=== PATIENT | male | born 1945 | race Caucasian/White ===

== ENCOUNTER 2019-09-22 13:35 | Emergency (ER) | payer MEDICARE ==
[~2019-09-22] VITALS: Ht 177.8 cm; Wt 82.6 kg
[2019-09-22] MEDS ORDERED: DIPHTH,PERTUSS(ACELL),TET TOX 0.5 ML DISP.SYRIN. VAX IM ONE (14:00)
--- NOTE | 2019-09-22 14:15 | RAD ---
EXAM: Pelvis and left hip, 2 views. HISTORY: Trauma. COMPARISON: None. FINDINGS: A frontal view of the pelvis and frontal and lateral views of the left hip and femur are obtained. There is internal fixation of a left femoral intertrochanteric fracture in anatomic alignment with an intramedullary manuel. There is also internal fixation of a distal femoral fracture with a lateral plate and multiple screws. There is bony bridging along the distal femoral fracture line. There is slight heterotopic ossification along the left medial femoral condyle. There is medial compartment joint space narrowing of the knee. There is calcified atherosclerotic plaque throughout the left lower extremity. IMPRESSION: 1. Internal fixation of a left femoral intertrochanteric fracture. 2. Internal fixation of a healed distal femoral metadiaphyseal fracture. 3. Medial compartment osteoarthritis of the left knee. Electronically signed by: Ely Cordova MD (09/22/2019 2:13 PM) [id number]
[2019-09-22 14:57] VITALS: BP 104/37
--- NOTE | 2019-09-22 15:46 | PHYS DOC ---
Past History Past Medical History: A-Fib, CHF, COPD, DVT, Seizure, Other Additional Past Medical Histor: anemia, dysphagia, BPH, pleural effusion Additional Smoking Information: pt has nicotine patch Alcohol Use: None Drug Use: None Adult General Chief Complaint Chief Complaint: HIP PAIN HPI HPI Patient is a [73-year-old male who did fall yesterday at the senior care he is about one month status post hip replacement on the left he says that he was walking using his walker without the nurse's next to him he knew that he shouldn't have been he lost his balance and fell on his buttocks he did not hit his head he says he knows he is sure that. History was also obtained from nursing staff who got report from the nursing facility patient is on Coumadin last INR was 2.1 day confirm no head injury noted. Patient was complaining of increasing hip pain so he was brought to the emergency room for evaluation Review of Systems Review of Systems Constitutional: Denies fever or chills [] Eyes: Denies change in visual acuity, redness, or eye pain [] HENT: Denies nasal congestion or sore throat [] Respiratory: Denies cough or shortness of breath [] All other systems were reviewed and found to be within normal limits, except as documented in this note. Current Medications Current Medications Current Medications Medications (Trade) Dose Ordered Sig/Yeimi Start Time Stop Time Status Last Admin Dose Admin Diphtheria/ Tetanus/Acell Pertussis (Boostrix) 0.5 ml ONCE ONCE 09/22/19 14:00 09/22/19 14:34 DC 09/22/19 14:48 0.5 ML Allergies Allergies Allergies Coded Allergies Type Severity Reaction Last Updated Verified No Known Drug Allergies 09/22/19 No Physical Exam Physical Exam Constitutional: Well developed, well nourished, no acute distress, non-toxic appearance. [] HENT: Normocephalic, atraumatic, bilateral external ears normal, oropharynx moist, no oral exudates, nose normal. [] Eyes: PERRLA, EOMI, conjunctiva normal, no discharge. [] Neck: Normal range of motion, no tenderness, supple, no stridor. [] Lungs & Thorax: Bilateral breath sounds clear to auscultation [] Abdomen: Bowel sounds normal, soft, no tenderness, no masses, no pulsatile masses. [] Skin: Warm, dry, no erythema, no rash. [] Back: No tenderness, no CVA tenderness. [] Extremities: Tenderness to palpation noted of the left hip range motion is actually fairly intact no obvious ecchymosis was identified there is edema noted appears chronic bilateral symmetric Neurologic: Alert and oriented X 3, normal motor function, normal sensory function, no focal deficits noted. [] Psychologic: Affect normal, judgement normal, mood normal. [] Current Patient Data Vital Signs Vital Signs Date Time Temp Pulse Resp B/P (MAP) Pulse Ox O2 Delivery O2 Flow Rate FiO2 09/22/19 14:57 73 16 104/37 (59) 97 Room Air 09/22/19 13:40 98.6 EKG EKG [] Radiology/Procedures Radiology/Procedures [] Impressions: IMPRESSION: 1. Internal fixation of a left femoral intertrochanteric fracture. 2. Internal fixation of a healed distal femoral metadiaphyseal fracture. 3. Medial compartment osteoarthritis of the left knee. Electronically signed by: Ely Cordova MD (09/22/2019 2:13 PM) [place] [id number] DICTATED AND SIGNED BY: ELY CORDOVA MD DATE: 09/22/19 1413 CC: ASHLEY SNYDER MD ~ Course & Med Decision Making Course & Med Decision Making Pertinent Labs and Imaging studies reviewed. (See chart for details) []73-year-old male A. fib on Coumadin recent hip surgery presenting after mechanical fall with increased hip pain x-ray negative range of motion is actually not bad given her recent surgery no head injury by clinical examination or history patient is neuro intact greater than 24 hours after the injury at this point time patient was reassured and will be discharged back to the nursing facility in stable condition Dragon Disclaimer Dragon Disclaimer This electronic medical record was generated, in whole or in part, using a voice recognition dictation system. Departure Departure: Impression: Primary Impression: Hip pain Disposition: 01 HOME, SELF-CARE Condition: STABLE Patient Instructions: Hip Pain ASHLEY SNYDER MD Sep 22, 2019 15:46
== END 2019-09-22 15:05 | disposition home or self-care (01) ==
LOC: ER 13:35
DX: M25.552 Pain in left hip (principal); Z96.642 Presence of left artificial hip joint; I48.91 Unspecified atrial fibrillation; I50.9 Heart failure, unspecified; J44.9 Chronic obstructive pulmonary disease, unspecified; Z86.718 Personal history of other venous thrombosis and embolism; Z79.01 Long term (current) use of anticoagulants; F17.200 Nicotine dependence, unspecified, uncomplicated; W18.39XA Other fall on same level, initial encounter; Y93.01 Activity, walking, marching and hiking; Y92.128 Other place in nursing home as the place of occurrence of the external cause; Y99.8 Other external cause status
CPT/HCPCS: 73502; 90471; 90715; 99284-25

== ENCOUNTER 2019-09-26 15:59 | Emergency (ER) | payer MEDICARE ==
[~2019-09-26] VITALS: Ht 177.8 cm; Wt 82.6 kg
--- NOTE | 2019-09-26 16:09 | PHYS DOC ---
Past History Past Medical History: A-Fib, CHF, COPD, DVT, Seizure, Other Additional Past Medical Histor: anemia, dysphagia, BPH, pleural effusion Alcohol Use: None Drug Use: None Adult General Chief Complaint Chief Complaint: MECHANICAL FALL HPI HPI Patient is a 73-year-old male who presents from [facility] with report that he fell. Patient states that his feet got tangled up with each other and he states that he had a flareup of being clumsy which caused the fall. Patient states that he landed on his bottom. He denies any pain anywhere. He states that he did not hit his head. Patient was brought here because he is on blood thinners. Patient denies any headache or head injury..[] Review of Systems Review of Systems Constitutional: Denies fever or chills [] Respiratory: Denies cough or shortness of breath [] Cardiovascular: No additional information not addressed in HPI [] Musculoskeletal: Denies back pain or joint pain [] Neurologic: Denies headache, focal weakness or sensory changes [] Allergies Allergies Allergies Coded Allergies Type Severity Reaction Last Updated Verified No Known Drug Allergies 09/22/19 No Physical Exam Physical Exam Constitutional: Well developed, well nourished, no acute distress, non-toxic appearance. [] HENT: Normocephalic, atraumatic. [] Neck: Normal range of motion, no tenderness, supple, no stridor. [] Cardiovascular: Regular rate with irregular rhythm[] Lungs & Thorax: Bilateral breath sounds clear to auscultation [] Neurologic: Alert and oriented, no focal deficits noted. [] EKG EKG [] Radiology/Procedures Radiology/Procedures [] Course & Med Decision Making Course & Med Decision Making Pertinent Labs and Imaging studies reviewed. (See chart for details) [] Dragon Disclaimer Dragon Disclaimer This electronic medical record was generated, in whole or in part, using a voice recognition dictation system. Departure Departure: Impression: Primary Impression: Fall with no injury Disposition: 01 HOME, SELF-CARE Condition: STABLE Referrals: HIRA URIAS MD (PCP) Patient Instructions: Fall Prevention in Hospitals Problem Qualifiers Primary Impression: Fall with no injury Encounter type: initial encounter Qualified Codes: W19.XXXA - Unspecified fall, initial encounter DIEGO KOHLER Jr. DO Sep 26, 2019 16:09
[2019-09-26 18:46] VITALS: BP 164/69
== END 2019-09-26 16:35 | disposition home or self-care (01) ==
LOC: ER 15:59
DX: Z04.3 Encounter for examination and observation following other accident (principal); I48.91 Unspecified atrial fibrillation; I50.9 Heart failure, unspecified; J44.9 Chronic obstructive pulmonary disease, unspecified; Z86.718 Personal history of other venous thrombosis and embolism; W18.39XA Other fall on same level, initial encounter; Y93.89 Activity, other specified; Y92.128 Other place in nursing home as the place of occurrence of the external cause; Y99.8 Other external cause status
CPT/HCPCS: 99284

== ENCOUNTER 2019-09-30 12:18 | Emergency (ER) | payer MEDICARE ==
[~2019-09-30] VITALS: Ht 177.8 cm; Wt 72.1 kg
[2019-09-30] MEDS ORDERED: 0.9 % SODIUM CHLORIDE 10 ML DISP.SYRIN. IV PRN (12:45)
[2019-09-30] MEDS ORDERED: PIPERACILLIN/TAZOBACTAM 4.5 GM in IV NORMAL SALINE 100ML 100 ML IV ONE (12:45)
--- NOTE | 2019-09-30 12:46 | PHYS DOC ---
Past History Past Medical History: A-Fib, CHF, COPD, DVT, Seizure, Other Additional Past Medical Histor: anemia, dysphagia, BPH, pleural effusion Past Surgical History: Other Additional Past Surgical Histo: Left hip nailing in August 2019 Smoking: Cigarettes, Less than 1pk/day Alcohol Use: None Drug Use: None Adult General Chief Complaint Chief Complaint: SHORTNESS OF BREATH HPI HPI Patient is a 73-year-old male brought in by EMS due to sepsis. Patient has had diarrhea for the past several days. Was diagnosed with pneumonia on chest x-ray within the past 12 hours. He is now requiring supplemental oxygen. With an oxygen saturation of 88% on room air, 94% on 3 L nasal cannula per EMS. He has a history of atrial fibrillation and is on digoxin as well as Coumadin for this. He denies any shortness of breath. Denies any blood in his stool. Denies being on any recent antibiotics. He had surgery on his left hip last month. Nothing makes symptoms better or worse.[] Review of Systems Review of Systems Constitutional: Denies fever or chills [] Eyes: Denies change in visual acuity, redness, or eye pain [] HENT: Denies nasal congestion or sore throat [] Respiratory: Denies cough or shortness of breath [] Cardiovascular: O chest pain or palpitations[] GI: Denies abdominal pain, nausea, vomiting, bloody stools, see history of present illness[] : Denies dysuria or hematuria [] Musculoskeletal: Denies back pain or joint pain [] Integument: Denies rash or skin lesions [] Neurologic: Denies headache, focal weakness or sensory changes [] Endocrine: Denies polyuria or polydipsia [] All other systems were reviewed and found to be within normal limits, except as documented in this note. Allergies Allergies Allergies Coded Allergies Type Severity Reaction Last Updated Verified No Known Drug Allergies 09/22/19 No Physical Exam Physical Exam Constitutional: Well developed, well nourished, no acute distress, non-toxic appearance. [] HENT: Normocephalic, atraumatic, bilateral external ears normal, oropharynx moist, no oral exudates, nose normal. [] Eyes: PERRLA, EOMI, conjunctiva normal, no discharge. [] Neck: Normal range of motion, no tenderness, supple, no stridor. [] Cardiovascular:Heart rate is tachycardic in the 110s with an irregularly irregular rhythm, no murmur [] Lungs & Thorax: Bilateral breath sounds clear to auscultation [] Abdomen: Bowel sounds normal, soft, no tenderness, no masses, no pulsatile alex s. [] Skin: Warm, dry, no erythema, no rash. [] Back: No tenderness, no CVA tenderness. [] Extremities: No tenderness, no cyanosis, no clubbing, ROM intact, 1-2+ pretibial edema bilaterally symmetric[] Neurologic: Alert and oriented X 3, normal motor function, normal sensory function, no focal deficits noted. [] Psychologic: Affect normal, judgement normal, mood normal. [] EKG EKG EKG shows an irregular rhythm at 113 bpm, consistent with atrial fibrillation, left axis, QTC of 469 ms, no ST elevation. Interpreted by me at 1229.[] Radiology/Procedures Radiology/Procedures PROCEDURE: PORTABLE CHEST 1V Portable chest x-ray without comparison for fever, cough, reported pneumonia, history of smoking, A. fib. FINDINGS: There are patchy airspace infiltrates in both lung bases, left greater than right, there also coarse interstitial changes throughout, with indistinctness of the central vascularity, which could reflect pulmonary edema and/or interstitial fibrosis. Heart size is within normal limits. Atherosclerosis is present. Left hemidiaphragm is elevated. IMPRESSION: 1. Bilateral airspace infiltrates of the lung bases, left greater than right. 2. Coarse interstitial changes diffusely which may reflect prominent edema or interstitial fibrosis. 3. Elevated left hemidiaphragm.[] Course & Med Decision Making Course & Med Decision Making Pertinent Labs and Imaging studies reviewed. (See chart for details) Emergency department course: Patient arrived, was placed in bed, and tolerated exam well. IV access was established, patient was given an initial antibiotic therapy. Discussion with patient and family, they would like to be transferred to [facility] cause that's where most of his care is provided. Dr. Asher graciously accepted the patient for transfer. Medical decision making: It believe the patient to have healthcare associated pneumonia given the chest x-ray findings. He has been given initial dose of IV antibiotics. Patient has also been having diarrhea which may be as a result of antibiotic therapy. At the assisted care/rehabilitation facility it appears that he had a C. difficile test performed. Those results are not back at this time. Patient's INR is slightly elevated given his history of A. fib. Digoxin level is pending. He does not appear to be septic given his lactate being normal.[] Dragon Disclaimer Dragon Disclaimer This electronic medical record was generated, in whole or in part, using a voice recognition dictation system. Departure Departure: Impression: Primary Impression: Pneumonia Additional Impressions: Diarrhea Atrial fibrillation COPD (chronic obstructive pulmonary disease) Disposition: 05 TRANSFER OTHER Condition: IMPROVED Referrals: HIRA URIAS MD (PCP) Problem Qualifiers Primary Impression: Pneumonia Pneumonia type: due to unspecified organism Laterality: bilateral Lung location: lower lobe of lung Qualified Codes: J18.9 - Pneumonia, unspecified organism Additional Impressions: Diarrhea Diarrhea type: unspecified type Qualified Codes: R19.7 - Diarrhea, unspecified Atrial fibrillation Atrial fibrillation type: unspecified Qualified Codes: I48.91 - Unspecified atrial fibrillation COPD (chronic obstructive pulmonary disease) COPD type: unspecified COPD Qualified Codes: J44.9 - Chronic obstructive pulmonary disease, unspecified EVANGELINA AZEVEDO DO Sep 30, 2019 12:46
--- NOTE | 2019-09-30 12:54 | RAD ---
Portable chest x-ray without comparison for fever, cough, reported pneumonia, history of smoking, A. fib. FINDINGS: There are patchy airspace infiltrates in both lung bases, left greater than right, there also coarse interstitial changes throughout, with indistinctness of the central vascularity, which could reflect pulmonary edema and/or interstitial fibrosis. Heart size is within normal limits. Atherosclerosis is present. Left hemidiaphragm is elevated. IMPRESSION: 1. Bilateral airspace infiltrates of the lung bases, left greater than right. 2. Coarse interstitial changes diffusely which may reflect prominent edema or interstitial fibrosis. 3. Elevated left hemidiaphragm. Electronically signed by: Grady Newman MD (09/30/2019 12:51 PM) [id number]
[2019-09-30 12:55] LABS: BASO % 1 % (0-3); EOS % 1 % (0-3); HEMATOCRIT 38.7 % (39.0-53.0); HEMOGLOBIN 12.6 g/dL (13.0-17.5); LYMPH # 0.5 x10^3/uL (1.0-4.8); LYMPH % 7 % (24-48); MEAN CORPUSCULAR HEMOGLOBIN 32 pg (25-35); MEAN CORPUSCULAR HGB CONC 33 g/dL (31-37); MEAN CORPUSCULAR VOLUME 97 fL (79-100); MONO # 0.5 x10^3/uL (0.0-1.1); MONO % 7 % (0-9); NEUT # 6.3 x10^3uL (1.8-7.7); NEUT % 85 % (31-73); PLATELET COUNT 276 x10^3/uL (140-400); RED BLOOD COUNT 3.98 x10^6/uL (4.30-5.70); RED CELL DISTRIBUTION WIDTH 21.6 % (11.5-14.5); WHITE BLOOD COUNT 7.4 x10^3/uL (4.0-11.0)
--- NOTE | 2019-09-30 12:55 | EKG ---
[address] [address] Test Date: 2019-09-30 Test Time: 12:28:36 Pat Name: CHRISTOPH GARCIA Department: Room: Gender: M [employer] Consultant: : 1945 Requested By: EVANGELINA AZEVEDO Order Number: [id number] Reading MD: Measurements Intervals [place] Rate: 113 P: HI: QRS: -4 QRSD: 82 T: 26 QT: 338 QTc: 469 Interpretive Statements IRREGULAR RHYTHM, NO P-WAVE FOUND LEFTWARD AXIS T ABNORMALITY IN HIGH LATERAL LEADS ABNORMAL ECG RI6.01 No previous ECG available for comparison
[2019-09-30 13:09] LABS: PHENY 3.9 mcg/mL (10.0-20.0)
[2019-09-30 13:17] LABS: DIG 0.3 ng/dL (0.9-2.0)
[2019-09-30] MEDS ORDERED: PIPERACILLIN/TAZOBACTAM 4.5 GM VIAL IV ONE (13:19)
[2019-09-30] MEDS ORDERED: IV NORMAL SALINE 100ML 100 ML ONE (13:20)
[2019-09-30 13:22] LABS: ALBUMIN/GLOBULIN RATIO 0.7 (1.0-1.7); CALCIUM 8.2 mg/dL (8.5-10.1); CREATININE 1.1 mg/dL (0.7-1.3); GFR 65.3; POTASSIUM 4.2 mmol/L (3.5-5.1); TOTAL BILIRUBIN 0.5 mg/dL (0.2-1.0); TOTAL PROTEIN 7.2 g/dL (6.4-8.2)
[2019-09-30] MEDS ORDERED: IPRATRPIUM/ALBUTEROL 0.5/2.5MG 3 ML NEBU. NEB ONE (14:00)
[2019-09-30 14:08] LABS: PLT ESTIMATE ADEQUATE (ADEQUATE)
[2019-09-30 14:09] LABS: OVALOCYTES FEW
[2019-09-30 14:10] LABS: ANISOCYTOSIS PRESENT; BURR CELLS FEW; TEAR DROP CELLS FEW
[2019-09-30 14:11] LABS: SCHISTOCYTES OCC
[2019-09-30 14:14] LABS: INFLUENZA A PATIENT NEGATIVE (NEGATIVE); INFLUENZA B PATIENT NEGATIVE (NEGATIVE)
[2019-09-30 15:21] VITALS: BP 115/73
[2019-09-30 15:39] LABS: BILIRUBIN,URINE NEG (NEG); CLARITY,URINE CLEAR; COLOR,URINE YELLOW; GLUCOSE,URINE NEG (NEG); NITRITE,URINE NEG (NEG); UROBILINOGEN,URINE 0.2 mg/dL (0.2 mg/dL)
[2019-09-30 15:40] LABS: BACTERIA,URINE 0 /HPF (0-FEW); SQUAMOUS EPITHELIAL CELL,UR OCC /LPF; WBC,URINE OCC /HPF (0-4)
[2019-09-30] MEDS ORDERED: IV NORMAL SALINE 1,000ML 1,000 ML IV ONE (16:45)
== END 2019-09-30 16:50 | disposition short-term general hospital (02) ==
LOC: ER 12:18
DX: J18.9 Pneumonia, unspecified organism (principal); J44.0 Chronic obstructive pulmonary disease with (acute) lower respiratory infection; I48.91 Unspecified atrial fibrillation; R19.7 Diarrhea, unspecified; I50.9 Heart failure, unspecified; F17.210 Nicotine dependence, cigarettes, uncomplicated; Z86.718 Personal history of other venous thrombosis and embolism; Z86.2 Personal history of diseases of the blood and blood-forming organs and certain disorders involving the immune mechanism
CPT/HCPCS: 36415; 71045; 80053; 80162; 80185; 81001; 83605; 83690; 84484; 85025; 85610; 85730; 87040; 87804; 93005; 94640; 96365; 96366; 99285; J2543; J7620; J7030

== ENCOUNTER 2019-10-26 19:33 | Emergency (ER) | payer MEDICARE ==
[~2019-10-26] VITALS: Ht 177.8 cm; Wt 76.4 kg
[2019-10-26 19:33] VITALS: BP 132/49
--- NOTE | 2019-10-26 19:37 | PHYS DOC ---
Past History Past Medical History: A-Fib, Anemia, CHF, COPD, Dementia, DVT, GERD, Hip Fracture, Hypertension, Prostatitis, Seizure, Other Additional Past Medical Histor: anemia, dysphagia, BPH, pleural effusion, displaced/demetria fracture of L femur Past Surgical History: Other Additional Past Surgical Histo: Left hip nailing in August 2019 Smoking: Cigarettes, Less than 1pk/day Alcohol Use: None Drug Use: None Adult General Chief Complaint Chief Complaint: MECHANICAL FALL...." I Bent over to pickle sorter a pice of paper.. and slid out of my wheel chair.. this was about 3 pm... nothing hurts... I should not even be here.. it a thing between my and a nurse...just let me go back..." [facility] HPI Patient is a 73 year old male who presents with above hx and complaints of a fall out of his wheelchair. Patient denies any pain in hips and sacral area. Patient recently had Lt,hip pinning and is a resident of [facility]. Patient has been at rehabilitation since 09/18/2019. Patient does have an extensive medical history with a history of recent displaced anterior trochanter fracture left femur - post pinning, Pt. has hx. of chronic bronchitis, chronic COPD, dysphagia, gait disorder, DVT left popliteal, anemia, protein malnutrition, epilepsy, atrial fibrillation, CHF, Pulmonary pleural effusions, obstructive uropathy, benign prostate hyperplasia, and deconditioning. Patient normally follows with at [facility]. Review of Systems Review of Systems Constitutional: Denies fever or chills [] Eyes: Denies change in visual acuity, redness, or eye pain [] HENT: Denies nasal congestion or sore throat [] Respiratory: Denies cough or shortness of breath [] Cardiovascular: No additional information not addressed in HPI [] GI: Denies abdominal pain, nausea, vomiting, bloody stools or diarrhea [] : Denies dysuria or hematuria [] Musculoskeletal: Denies back pain or joint pain [] Integument: Denies rash or skin lesions [] Neurologic: Denies headache, focal weakness or sensory changes [] Endocrine: Denies polyuria or polydipsia [] All other systems were reviewed and found to be within normal limits, except as documented in this note. Family History Family History Noncontributory to presentation Current Medications Current Medications See nursing for home meds Allergies Allergies Allergies Coded Allergies Type Severity Reaction Last Updated Verified No Known Drug Allergies 09/22/19 No Physical Exam Physical Exam Constitutional: no acute distress, non-toxic appearance. [] HENT: Normocephalic, atraumatic, bilateral external ears normal, oropharynx moist, no oral exudates, nose normal. [] Eyes: PERRLA, EOMI, conjunctiva normal, no discharge. Glasses Neck: Normal range of motion, no tenderness, supple, no stridor. [] Cardiovascular:Heart rate regular rhythm, no murmur []PMI to the left Lungs & Thorax: Bilateral breath sounds at apexes with scattered wheezes on aus cultation [] Abdomen: Bowel sounds normal, soft, no tenderness, no masses, no pulsatile masses. [] Skin: Warm, dry, no erythema, no rash. [] Back: No tenderness, no CVA tenderness. [] Extremities: No tenderness, no cyanosis, no clubbing, ROM intact, no edema. []No obvious sacral ecchymosis. Recent pending of left hip scar Neurologic: Alert and oriented X 3, moves his extremities on request, distal se nsory function, no dose focal deficits noted. [] Psychologic: Affect normal, judgement normal, mood angry that he was sent to the emergency department[] EKG EKG [] Radiology/Procedures Radiology/Procedures [][place] [address] IMAGING REPORT Signed PATIENT: CHRISTOPH GARCIA ACCOUNT: [id number] : 1945 LOCATION: ER AGE: 73 SEX: M EXAM STATUS: PRE ER ORD. PHYSICIAN: PRITI BOX MD REASON: Fall out wheel chair, posterior pain. Hx: Left hip repair 2 mths PROCEDURE: PELVIS Pelvis one view. HISTORY: Fell out of wheelchair, pain, recent left hip repair Supine views were taken of the pelvis. There is degenerative change in the lower lumbar spine. An acute pelvic fracture is not identified. A right hip fracture is not evident. There is a healing intertrochanteric fracture of the left hip held in place with intramedullary manuel and hip nail which are remaining good position. An additional AP view of the mid femur shows a intramedullary manuel in good position. There is a plate along the lateral femur with an old distal femur fracture. IMPRESSION: 1. No pelvic fracture noted. 2. Healing intratrochanteric fracture left hip in good position. 3. Old healed left distal femur fracture. Electronically signed by: Avila Jimenez MD (10/26/2019 8:49 PM) [facility] DICTATED AND SIGNED BY: AVILA JIMENEZ MD DATE: 10/26/192048 CC: PRITI BOX MD; HIRA URIAS MD ~ Course & Med Decision Making Course & Med Decision Making Pertinent Labs and Imaging studies reviewed. (See chart for details) Photo taken of pt sacral area. Patient instructed on fall precautions. Patient follow-up primary care. Patient return if any concerns. Impression- 1. Hx. fall from wheel chair 2. Contusion [] Dragon Disclaimer Dragon Disclaimer This electronic medical record was generated, in whole or in part, using a voice recognition dictation system. Departure Departure: Disposition: 01 HOME/RESIDENCE PRIOR TO ADM Condition: STABLE Referrals: HIRA URIAS MD (PCP) Dragon Disclaimer This chart was dictated in whole or in part using Voice Recognition software in a busy, high-work load, and often noisy Emergency Department environment. It may contain unintended and wholly unrecognized errors or omissions. Dragon Disclaimer This chart was dictated in whole or in part using Voice Recognition software in a busy, high-work load, and often noisy Emergency Department environment. It may contain unintended and wholly unrecognized errors or omissions. Dragon Disclaimer This chart was dictated in whole or in part using Voice Recognition software in a busy, high-work load, and often noisy Emergency Department environment. It may contain unintended and wholly unrecognized errors or omissions. PRITI BOX MD Oct 26, 2019 19:37
--- NOTE | 2019-10-26 20:52 | RAD ---
Pelvis one view. HISTORY: Fell out of wheelchair, pain, recent left hip repair Supine views were taken of the pelvis. There is degenerative change in the lower lumbar spine. An acute pelvic fracture is not identified. A right hip fracture is not evident. There is a healing intertrochanteric fracture of the left hip held in place with intramedullary manuel and hip nail which are remaining good position. An additional AP view of the mid femur shows a intramedullary manuel in good position. There is a plate along the lateral femur with an old distal femur fracture. IMPRESSION: 1. No pelvic fracture noted. 2. Healing intratrochanteric fracture left hip in good position. 3. Old healed left distal femur fracture. Electronically signed by: Avila Jimenez MD (10/26/2019 8:49 PM) [facility]
== END 2019-10-26 21:30 | disposition home or self-care (01) ==
LOC: ER 19:33
DX: S70.02XA Contusion of left hip, initial encounter (principal); I48.91 Unspecified atrial fibrillation; I11.0 Hypertensive heart disease with heart failure; I50.9 Heart failure, unspecified; F03.90 Unspecified dementia, unspecified severity, without behavioral disturbance, psychotic disturbance, mood disturbance, and anxiety; K21.9 Gastro-esophageal reflux disease without esophagitis; F17.210 Nicotine dependence, cigarettes, uncomplicated; Z86.2 Personal history of diseases of the blood and blood-forming organs and certain disorders involving the immune mechanism; Z86.718 Personal history of other venous thrombosis and embolism; W05.0XXA Fall from non-moving wheelchair, initial encounter; Y93.89 Activity, other specified; Y92.89 Other specified places as the place of occurrence of the external cause; Y99.8 Other external cause status
CPT/HCPCS: 72170; 99284

== ENCOUNTER 2019-11-03 09:59 | Inpatient (IN) | payer MEDICARE ==
[~2019-11-03] VITALS: Ht 177.8 cm; Wt 71.4 kg
--- NOTE | 2019-11-03 11:23 | RAD ---
CHEST AP ONLY History: Shortness of breath Comparison: September 30, 2019 Findings: Patchy bibasilar opacities. Mild interstitial thickening. No pleural effusion. Unchanged heart size. No pneumothorax. Impression: 1. Patchy bibasilar opacities, may represent atelectasis or consolidation. 2. Unchanged interstitial thickening, may relate to chronic interstitial changes. Electronically signed by: Art Arteaga DO (11/03/2019 11:19 AM) [id number]
[2019-11-03] MEDS: IV NORMAL SALINE 1,000ML 1,000 ML IV SCH ×3 (11:37→19:43)
[2019-11-03 11:50] LABS: BASO % 1 % (0-3); EOS # 0.4 x10^3/uL (0.0-0.7); EOS % 7 % (0-3); HEMATOCRIT 37.6 % (39.0-53.0); HEMOGLOBIN 12.1 g/dL (13.0-17.5); LYMPH # 1.1 x10^3/uL (1.0-4.8); LYMPH % 19 % (24-48); MEAN CORPUSCULAR HEMOGLOBIN 32 pg (25-35); MEAN CORPUSCULAR HGB CONC 32 g/dL (31-37); MEAN CORPUSCULAR VOLUME 98 fL (79-100); MONO # 0.5 x10^3/uL (0.0-1.1); MONO % 9 % (0-9); NEUT # 3.8 x10^3uL (1.8-7.7); NEUT % 65 % (31-73); PLATELET COUNT 198 x10^3/uL (140-400); RED BLOOD COUNT 3.83 x10^6/uL (4.30-5.70); RED CELL DISTRIBUTION WIDTH 17.8 % (11.5-14.5); WHITE BLOOD COUNT 5.9 x10^3/uL (4.0-11.0)
[2019-11-03 11:51] LABS: CALCIUM 7.9 mg/dL (8.5-10.1); CREATININE 0.9 mg/dL (0.7-1.3); GFR 82.3; POTASSIUM 4.3 mmol/L (3.5-5.1)
[2019-11-03 11:56] LABS: DIG 0.3 ng/dL (0.9-2.0); PHENY 5.4 mcg/mL (10.0-20.0)
[2019-11-03 11:57] LABS: ALBUMIN 2.7 g/dL (3.4-5.0); ALBUMIN/GLOBULIN RATIO 0.7 (1.0-1.7); TOTAL BILIRUBIN 0.3 mg/dL (0.2-1.0); TOTAL PROTEIN 6.6 g/dL (6.4-8.2)
[2019-11-03 12:04] LABS: INFLUENZA A PATIENT NEGATIVE (NEGATIVE); INFLUENZA B PATIENT NEGATIVE (NEGATIVE)
[2019-11-03] MEDS ORDERED: CONTRAST GIVEN MC PRN (12:30)
[2019-11-03] MEDS ORDERED: IOHEXOL 350 MG/ML 100 ML VIAL. IV ONE (12:45)
--- NOTE | 2019-11-03 13:17 | RAD ---
CT ANGIOGRAPHY CHEST History: Chest pain Technique: CT of the chest was performed with contrast. PE protocol. Maximum intensity projection coronal and sagittal reconstructions were performed. Exposure: One or more of the following individualized dose reduction techniques were utilized for this examination: 1. Automated exposure control 2. Adjustment of the mA and/or kV according to patient size 3. Use of iterative reconstruction technique. Comparison: None Findings: Chest: Bilateral segmental and subsegmental pulmonary emboli. Partial clot extends into the right main pulmonary artery. Linear opacity within the left main pulmonary artery. Additional linear opacities within the right middle lobe and left upper lobe pulmonary arteries, may relate to sequelae of chronic thrombosis. Reflux of contrast into the IVC and hepatic veins during of the interventricular septum and mild dilatation of the right ventricle. Ascending aorta aneurysm measures 5.4 cm. Multiple mildly enlarged mediastinal and hilar lymph nodes, likely reactive. Calcified hilar lymph nodes and calcified pulmonary nodules, likely prior granulomatous disease. Bilateral bronchial wall thickening with multifocal mucus plugging most prominent within the bilateral lower lobes. Bilateral lower lobe patchy opacities with tree-in-bud nodularity. Right middle lobe groundglass opacities. Pulmonary emphysema. Upper abdomen: Hepatic hypodensities, too small to further characterize. Bones: DISH related changes of the thoracic spine. Multilevel thoracic spondylosis. Impression: 1. Acute on chronic bilateral pulmonary emboli most prominent within the bilateral lower lobes with partial thrombus extending into the right main pulmonary artery. 2. Suggestion of right heart strain. 3. Patchy bibasilar opacities, may represent infectious or inflammatory process and developing infarct is possible. 4. Bilateral lower lobe bronchial wall thickening with mucus plugging. 5. Ascending aortic aneurysm. FOR INTERNAL CODING PURPOSES Critical result: Findings discussed with PK AIKEN at 11/03/2019 1:10 PM. RESULT CODE: (C) Electronically signed by: Art Arteaga DO (11/03/2019 1:14 PM) [email or web address]
--- NOTE | 2019-11-03 13:42 | PHYS DOC ---
Past History Past Medical History: A-Fib, Anemia, CHF, COPD, Dementia, DVT, GERD, Hip Fracture, Hypertension, Prostatitis, Seizure, Other Additional Past Medical Histor: anemia, dysphagia, BPH, pleural effusion, displaced/demetria fracture of L femur Past Surgical History: Other Additional Past Surgical Histo: Left hip nailing in August 2019 Smoking: Cigarettes, Less than 1pk/day Alcohol Use: None Drug Use: None Adult General Chief Complaint Chief Complaint: NAUSEA/VOMITING/DIARRHEA HPI HPI Patient is a 73-year-old from [facility] who was brought here for evaluation due to elevated temperature, low blood pressure with nausea vomiting. He was r ecently had a fractured left hip, status post ORIF. He has history of hypertension, A. fib, CHF, DVT, is currently on Coumadin. He is a very poor historian. He denies any chest pain, no trouble breathing, no abdominal pain, aLL OTHER ros IS NEGATIVE UNLESS OTHERWISE NOTED IN hpi Review of Systems Review of Systems See above Current Medications Current Medications Current Medications Medications (Trade) Dose Ordered Sig/Yeimi Start Time Stop Time Status Last Admin Dose Admin Info (Do NOT chart on this entry -- for MONITORING) 1 each PRN DAILY PRN 11/03/19 12:30 11/05/19 12:29 Iohexol (Omnipaque 350 Mg/ml) 100 ml 1X ONCE 11/03/19 12:45 11/03/19 12:46 DC 11/03/19 12:32 100 ML Sodium Chloride 1,000 ml @ 1,000 mls/hr Q1H 11/03/19 10:52 11/03/19 11:51 DC 11/03/19 11:40 1,000 MLS/HR Allergies Allergies Allergies Coded Allergies Type Severity Reaction Last Updated Verified No Known Drug Allergies 09/22/19 No Physical Exam Physical Exam See above Constitutional: Well developed, well nourished, no acute distress, non-toxic appearance. [] HENT: Normocephalic, atraumatic, bilateral external ears normal, oropharynx moist, no oral exudates, nose normal. [] Eyes: PERRLA, EOMI, conjunctiva normal, no discharge. [] Neck: Normal range of motion, no tenderness, supple, no stridor. [] Cardiovascular:Heart rate regular rhythm, no murmur [] Lungs & Thorax: Bilateral breath sounds clear to auscultation [] Abdomen: Bowel sounds normal, soft, no tenderness, no masses, no pulsatile masses. [] Skin: Warm, dry, no erythema, no rash. [] Back: No tenderness, no CVA tenderness. [] Extremities: No tenderness, no cyanosis, no clubbing, ROM intact, no edema. [] Neurologic: Alert, AWAKE BUT CONFUSED TO TIME, normal motor function, normal sensory function, no focal deficits noted. [] Psychologic: Affect normal, judgement normal, mood normal. [] Current Patient Data Vital Signs Vital Signs Date Time Temp Pulse Resp B/P (MAP) Pulse Ox O2 Delivery O2 Flow Rate FiO2 11/03/19 13:17 133 100 Room Air 11/03/19 11:42 16 101/54 (70) 11/03/19 10:05 98.0 Lab Results Laboratory Tests Test 11/03/19 11:23 11/03/19 11:24 White Blood Count 5.9 x10^3/uL (4.0-11.0) Red Blood Count 3.83 x10^6/uL (4.30-5.70) L Hemoglobin 12.1 g/dL (13.0-17.5) L Hematocrit 37.6 % (39.0-53.0) L Mean Corpuscular Volume 98 fL (79-100) Mean Corpuscular Hemoglobin 32 pg (25-35) Mean Corpuscular Hemoglobin Concent 32 g/dL (31-37) Red Cell Distribution Width 17.8 % (11.5-14.5) H Platelet Count 198 x10^3/uL (140-400) Neutrophils (%) (Auto) 65 % (31-73) Lymphocytes (%) (Auto) 19 % (24-48) L Monocytes (%) (Auto) 9 % (0-9) Eosinophils (%) (Auto) 7 % (0-3) H Basophils (%) (Auto) 1 % (0-3) Neutrophils # (Auto) 3.8 x10^3uL (1.8-7.7) Lymphocytes # (Auto) 1.1 x10^3/uL (1.0-4.8) Monocytes # (Auto) 0.5 x10^3/uL (0.0-1.1) Eosinophils # (Auto) 0.4 x10^3/uL (0.0-0.7) Basophils # (Auto) 0.0 x10^3/uL (0.0-0.2) Prothrombin Time 24.5 SEC (9.4-11.4) H Prothrombin Time INR 2.4 (0.9-1.1) H Activated Partial Thromboplast Time 43 SEC (23-33) H Sodium Level 135 mmol/L (136-145) L Potassium Level 4.3 mmol/L (3.5-5.1) Chloride Level 104 mmol/L (98-107) Carbon Dioxide Level 25 mmol/L (21-32) Anion Gap 6 (6-14) Blood Urea Nitrogen 29 mg/dL (8-26) H Creatinine 0.9 mg/dL (0.7-1.3) Estimated GFR (Cockcroft-Gault) 82.3 BUN/Creatinine Ratio 32 (6-20) H Glucose Level 95 mg/dL (70-99) Lactic Acid Level 0.9 mmol/L (0.4-2.0) Calcium Level 7.9 mg/dL (8.5-10.1) L Total Bilirubin 0.3 mg/dL (0.2-1.0) Aspartate Amino Transferase (AST) 22 U/L (15-37) Alanine Aminotransferase (ALT) 27 U/L (16-63) Alkaline Phosphatase 174 U/L (46-116) H Total Protein 6.6 g/dL (6.4-8.2) Albumin 2.7 g/dL (3.4-5.0) L Albumin/Globulin Ratio 0.7 (1.0-1.7) L Lipase 87 U/L (73-393) Digoxin Level 0.3 ng/dL (0.9-2.0) L Digoxin Last Dose Date 11/02/19 Digoxin Last Dose Time 1900 Phenytoin (Dilantin) Level 5.4 mcg/mL (10.0-20.0) L Phenytoin Last Dose Date 11/02/19 Phenytoin Last Dose Time 1900 Influenza Type A (Rapid) Negative (NEGATIVE) Influenza Type B (Rapid) Negative (NEGATIVE) EKG EKG [] Radiology/Procedures Radiology/Procedures [][address] [address] IMAGING REPORT Signed PATIENT: CHRISTOPH GARCIA ACCOUNT: [id number] : 1945 LOCATION: ER AGE: 73 SEX: M EXAM STATUS: REG ER ORD. PHYSICIAN: PK AIKEN DO REASON: CHEST PAIN PROCEDURE: CT ANGIOGRAPHY CHEST CT ANGIOGRAPHY CHEST History: Chest pain Technique: CT of the chest was performed with contrast. PE protocol. Maximum intensity projection coronal and sagittal reconstructions were performed. Exposure: One or more of the following individualized dose reduction techniques were utilized for this examination: 1. Automated exposure control 2. Adjustment of the mA and/or kV according to patient size 3. Use of iterative reconstruction technique. Comparison: None Findings: Chest: Bilateral segmental and subsegmental pulmonary emboli. Partial clot extends into the right main pulmonary artery. Linear opacity within the left main pulmonary artery. Additional linear opacities within the right middle lobe and left upper lobe pulmonary arteries, may relate to sequelae of chronic thrombosis. Reflux of contrast into the IVC and hepatic veins during of the interventricular septum and mild dilatation of the right ventricle. Ascending aorta aneurysm measures 5.4 cm. Multiple mildly enlarged mediastinal and hilar lymph nodes, likely reactive. Calcified hilar lymph nodes and calcified pulmonary nodules, likely prior granulomatous disease. Bilateral bronchial wall thickening with multifocal mucus plugging most prominent within the bilateral lower lobes. Bilateral lower lobe patchy opacities with tree-in-bud nodularity. Right middle lobe groundglass opacities. Pulmonary emphysema. Upper abdomen: Hepatic hypodensities, too small to further characterize. Bones: DISH related changes of the thoracic spine. Multilevel thoracic spondylosis. Impression: 1. Acute on chronic bilateral pulmonary emboli most prominent within the bilateral lower lobes with partial thrombus extending into the right main pulmonary artery. 2. Suggestion of right heart strain. 3. Patchy bibasilar opacities, may represent infectious or inflammatory process and developing infarct is possible. 4. Bilateral lower lobe bronchial wall thickening with mucus plugging. 5. Ascending aortic aneurysm. FOR INTERNAL CODING PURPOSES Critical result: Findings discussed with PK AIKEN at 11/03/2019 1:10 PM. RESULT CODE: (C) Electronically signed by: Art Arteaga DO (11/03/2019 1:14 PM) [id number] DICTATED AND SIGNED BY: ART ARTEAGA DO DATE: 11/03/19 1314 CC: MARGIE BUNCH MD; PK AIKEN DO ~ Course & Med Decision Making Course & Med Decision Making Pertinent Labs and Imaging studies reviewed. (See chart for details) [] Dragon Disclaimer Dragon Disclaimer This electronic medical record was generated, in whole or in part, using a voice recognition dictation system. Departure Departure: Impression: Primary Impression: HCAP (healthcare-associated pneumonia) Additional Impression: Pulmonary embolism Disposition: ADMITTED INPATIENT Admitting Physician: Margie Bunch Condition: STABLE Referrals: MARGIE BUNCH MD (PCP) Problem Qualifiers PK AIKEN DO Nov 03, 2019 13:42
[2019-11-03] MEDS ORDERED: IV NORMAL SALINE 50ML 50 ML ONE ×2 (13:48)
[2019-11-03] MEDS ORDERED: PIPERACILLIN/TAZOBACTAM 3.375 GM VIAL IV ONE (13:48)
[2019-11-03] MEDS ORDERED: IV NORMAL SALINE 1,000ML 1,000 ML IV SCH (14:03)
[2019-11-03] MEDS ORDERED: PIPERACILLIN/TAZOBACTAM 3.375 GM in IV NORMAL SALINE 50ML 50 ML IV ONE (14:15)
[2019-11-03] MEDS ORDERED: ONDANSETRON PF 4 MG/2 ML VIAL. IV PRN (14:15)
[2019-11-03] MEDS: IPRATRPIUM/ALBUTEROL 0.5/2.5MG 3 ML NEBU. NEB SCH ×3 (14:34→20:40)
[2019-11-03] MEDS ORDERED: CALCIUM GLUCONATE 1,000 MG/10 ML VIAL IV ONE (15:30)
[2019-11-03 16:30] VITALS: BP 113/67
[2019-11-03] MEDS ORDERED: POTA20TA4 PO (16:53)
[2019-11-03] MEDS ORDERED: IPRA3AMP29 NEB (16:53)
[2019-11-03] MEDS ORDERED: FURO-69 PO (16:53)
[2019-11-03] MEDS ORDERED: PHEN100C PO (16:53)
[2019-11-03] MEDS ORDERED: CALC300T5 PO (16:53)
[2019-11-03] MEDS ORDERED: ONDA4TAB7 PO (16:53)
[2019-11-03] MEDS ORDERED: PRIM250T28 PO (16:53)
[2019-11-03] MEDS ORDERED: METO2.5T PO (16:53)
[2019-11-03] MEDS ORDERED: MAGN400O7 PO (16:53)
[2019-11-03] MEDS ORDERED: MAG-115 PO (16:53)
[2019-11-03] MEDS ORDERED: DIPH1TAB PO (16:53)
[2019-11-03] MEDS ORDERED: DIGO125T17 PO (16:53)
[2019-11-03] MEDS ORDERED: FAMO-63 PO (16:53)
[2019-11-03] MEDS ORDERED: METO25TA4 PO (16:53)
[2019-11-03] MEDS ORDERED: NICO1PAT25 TP (16:53)
[2019-11-03] MEDS ORDERED: FERR325T14 PO (16:53)
[2019-11-03] MEDS ORDERED: CYAN100016 SL (16:53)
[2019-11-03] MEDS ORDERED: LOPE2TAB27 PO (16:53)
--- NOTE | 2019-11-03 18:00 | HP ---
ADMIT DATE: 11/03/2019 HISTORY OF PRESENT ILLNESS: The patient is a 73-year-old male patient, currently a resident at [facility] as he suffered a mechanical fall with resultant left hip fracture. He underwent medullary nailing and was transfused 2 units of packed RBCs. He was admitted initially to [facility] on 09/01/2019 and was transferred to [facility] on 09/18/2019 to continue the process of rehabilitation, pain management and DVT prophylaxis. [facility] apparently [facility] to [facility] because of pneumonia and according to the nursing staff, the patient has had multiple episodes of diarrhea, nausea and vomiting and his blood pressure was low this morning and also has a low-grade temperature and therefore, the patient was transferred to [facility]. Initially, the plan was for him to go again to [facility]; however, because of the weather, he ended up in our Emergency Room where he was extensively evaluated. His lab work showed his white cell count, platelet, hemoglobin and hematocrit are normal. His prothrombin time and INR were within therapeutic range in 24.5 and 2.4. His aPTT was elevated at 43. His chemistry was also unremarkable. Lactic acid is only 0.9. His digoxin was 0.3 and phenytoin level was 5.4. His influenza A and B were negative. He did have a chest x-ray, which showed patchy bibasilar opacities, may represent atelectasis or consolidation, unchanged interstitial thickening may relate to chronic interstitial changes. He underwent CT angio of the chest, which showed that the patient has bilateral segmental and subsegmental pulmonary emboli and partial clot extends into the right main pulmonary artery, linear opacities within the left main pulmonary artery. Additional linear opacities within the right middle lobe and left upper lobe pulmonary artery ____ sequelae of chronic thrombosis, reflux of contrast into the IVC and hepatic veins during the interventricular septum and mild dilatation of the right ventricle ascending aortic aneurysm measuring up to 5.4 cm, multiple mildly enlarged hilar lymph nodes likely reactive. Calcified hilar lymph nodes and calcified pulmonary nodules likely prior granulomatous disease, bilateral bronchial wall thickening with multifocal mucus plugging, most prominent within the bilateral lower lobes, bilateral lower lobe patchy opacities with 3 in bud nodularity right middle lobe ground glass opacity and pulmonary emphysema. The upper abdomen showed hepatic hypodensities too small to further characterize. Bone showed dish related changes of thoracic spine, multilevel thoracic spondylosis with the impression that the patient has acute on chronic bilateral pulmonary emboli, most prominent within the bilateral lower lobes and partial thrombus extending into the right main pulmonary artery suggestion of right heart strain, three patchy bibasilar opacities may represent infectious inflammatory process and developing infarct possible. He has bilateral lower lobe bronchial wall thickening with mucus plugging ascending aortic aneurysm. He is already on Coumadin and his INR is within therapeutic range. Given the finding, he was started on IV antibiotic in the form of Zosyn and Zyvox. We will also start him on IV fluid. Given that he has had received multiple antibiotics before, I will send stool for C. diff to rule out possibility of C. diff colitis and we will try to get some orders from [facility] and I will contact also Dr. Leal and Dr. Colon regarding treatment of this patient given that he has right ventricular strain pattern. PAST MEDICAL HISTORY: Significant for previous history of DVT, atrial fibrillation, bacteremia, pneumonia, mild cognitive impairment. PAST SURGICAL HISTORY: Significant for tonsillectomy; tooth extraction; left hip fracture, status post open reduction and internal fixation; left distal femur fracture, status post open reduction and internal fixation. ALLERGIES: He has no known drug allergies. MEDICATIONS: He is currently on following medications: He is on ipratropium bromide, albuterol sulfate for DuoNeb 3 mL by nebulizer 4 times a day, nicotine patch 14 mg transdermally topically once a day. He is on ferrous sulfate 325 mg twice a day; digoxin 125 mcg once a day; metoprolol tartrate 25 mg, he takes 12.5 twice a day; primidone 250 mg 3 times a day; phenytoin sodium extended release 200 mg twice a day; potassium chloride 20 mEq twice a day; furosemide 20 mg once a day; metolazone 2.5 mg daily; calcium carbonate 300 mg every 4 hours; Mylanta 30 mL every 6 hours; Lomotil tablet 1 tablet twice a day; loperamide 2 mg every 6 hours; magnesium hydroxide; milk of magnesia 30 mL p.o. daily p.r.n. for constipation; Zofran 4 mg every 8 hours; famotidine 20 mg at bedtime; cyanocobalamin 1000 mcg daily. REVIEW OF SYSTEMS: The patient denied any blurring of vision, cataract, glaucoma or macular degeneration. Denied any earache, tinnitus or sensorineural deafness. Denied any nosebleeds, stuffy nose or postnasal drip. Denied any sore throat, sore tongue or difficulty swallowing. Did have obviously multiple episodes of nausea, vomiting as well as diarrhea. Denied any hematemesis, melena, hematochezia. Denied any dysuria, frequency or hematuria. Denied any chest pain or shortness of breath, cough, phlegm or hemoptysis. PHYSICAL EXAMINATION: GENERAL: On arrival to the Emergency Room, the patient looked well and was clearly in no apparent respiratory distress. There is no pallor, jaundice, cyanosis or thyromegaly. No jugular venous distention. No lower limb edema. VITAL SIGNS: His heart rate was 82, blood pressure was 101/54, temperature was 98, respiratory rate was 16, and oxygen saturation was 96% on room air. HEAD, EYES, EARS, NOSE AND THROAT: Showed normocephalic, atraumatic. NECK: Supple. HEART: Showed normal first and second heart sounds. No gallop or murmur. CHEST: Shows central trachea, equally reduced expansion, reduced air entry, vesicular sounds with bilateral basal crepitation. I could not appreciate any rhonchi. ABDOMEN: Scaphoid, soft, nontender. NEUROLOGIC: He is hard of hearing, but otherwise all cranial nerves intact. EXTREMITIES: He moves extremities without difficulty. He has marked muscle wasting of his hand indicating some form of cervical myelopathy. LABORATORY DIAGNOSTIC DATA: His lab work on arrival showed a white cell count of 5900, hemoglobin 12, hematocrit 38, MCV 98 and platelet count of 198,000. His chemistry showed a serum sodium of 135, potassium 4.3, chloride 104, bicarbonate 25, anion gap of 6, BUN 29, creatinine 0.9, estimated GFR was 82 mL per minute. His glucose was 95, calcium was 7.9. Total bilirubin, AST, ALT were normal. Alkaline phosphatase slightly elevated. Total protein was 6.6, albumin was 2.7 and lipase was 87. Lactic acid was only 0.9. His influenza A and B were negative. His toxic screen showed that digoxin was very low at 0.3 and phenytoin level was also supratherapeutic at 5.4. His prothrombin time was 24.5, INR of 2.4, aPTT was 43. CT angio of the chest showed that there is acute on chronic bilateral pulmonary emboli, most prominent within the bilateral lower lobe with partial thrombus extending into the right main pulmonary arteries suggestion of right heart strain, patchy bibasilar opacities may represent infectious inflammatory process or developing infarct as possible, has bilateral lower lobe bronchial wall thickening and mucus plugging ascending aortic aneurysm. PLAN: My plan is to obviously continue with his anticoagulation. We will start him on IV antibiotic in the form of Zosyn and Zyvox. We will continue to monitor his prothrombin time, INR. He is on phenytoin, which is obviously for seizure disorder. He probably needs a higher dose of that. We will repeat all his lab work tomorrow. HIRA URIAS MD DR: COLIN/aryan JOB#: [id number] / [id number]
[2019-11-03] MEDS ORDERED: CALCIUM CARBONATE 500 MG TAB.CHEW PO PRN (18:15)
--- NOTE | 2019-11-03 18:24 | NUR ---
NSG NOTE; ADMISSION ADMIT TO ROOM 105 FROM ED AT 1630 VIA CART ACCOMP BY EMS PERSONNEL C/O ELEV TEMP, N/V AND DIARRHEA PT IN REHAB AT [facility] AFTER LEFT HIP FRACTURE ORIF IN AUG 2019 INVOLVED WITH PT'S CARE
[2019-11-03] MEDS ORDERED: WARFARIN 7.5 MG TABLET. PO SCH (19:00)
--- NOTE | 2019-11-03 19:18 | NUR ---
Pharmacy Warfarin Dosing Note S:Pharmacy consulted to assist with anticoagulation therapy started with target INR: 2 -3 O:CHRISTOPH GARCIA is a 73 year old M with Atrial Fibrillation LABS: Last INR: 2.4 Last HGB: 12.1 Last HCT: 37.6 Last PLT: 198 Last dose of 7.5 mg given on 11/02/19 at Previous Regimen: Vitamin K given: Drug Interaction Changes: Ongoing Drug Interactions: A:INR Within desired Range. Target Range for this patient is: 2 -3 P: Warfarin dose: 7.5 mg Today at 1600 Bridge Therapy: Next INR due in am Pharmacy anticoagulation service will continue to follow. SAMEER MOSLEY [facility], 11/03/19 3219
[2019-11-03 19:40] VITALS: BP 94/56
[2019-11-03] MEDS: DIGOXIN 125 MCG TABLET PO SCH (19:44)
[2019-11-03] MEDS: METOPROLOL TART IMMED RELEASE 25 MG TABLET PO SCH (21:00)
[2019-11-03] MEDS: POTASSIUM CHLORIDE 20 MEQ TABLET.ER. PO SCH (21:00)
[2019-11-03] MEDS: FERROUS SULFATE 325 MG TABLET. PO SCH (21:00)
[2019-11-03] MEDS: FAMOTIDINE 20 MG TABLET PO SCH (21:31)
[2019-11-03] MEDS: ONDANSETRON ODT 4 MG TAB.RAPDIS PO SCH (21:31)
[2019-11-03] MEDS: PRIMIDONE 250 MG TABLET PO SCH (21:32)
[2019-11-03] MEDS: PHENYTOIN SODIUM EXTENDED 100 MG CAPSULE PO SCH (21:32)
[2019-11-03] MEDS: PIPERACILLIN/TAZOBACTAM 3.375 GM in IV NORMAL SALINE 50ML 50 ML IV SCH (21:33)
[2019-11-04 00:15] VITALS: BP 94/56
[2019-11-04] MEDS: ONDANSETRON ODT 4 MG TAB.RAPDIS PO SCH ×3 (05:24→21:23)
[2019-11-04] MEDS: IPRATRPIUM/ALBUTEROL 0.5/2.5MG 3 ML NEBU. NEB SCH ×4 (05:40→20:07)
[2019-11-04] MEDS: PIPERACILLIN/TAZOBACTAM 3.375 GM in IV NORMAL SALINE 50ML 50 ML IV SCH ×3 (05:40→18:00)
[2019-11-04 06:09] VITALS: BP 99/54
[2019-11-04] MEDS: IV NORMAL SALINE 1,000ML 1,000 ML IV SCH ×2 (08:05→21:25)
[2019-11-04] MEDS: PHENYTOIN SODIUM EXTENDED 100 MG CAPSULE PO SCH ×2 (08:22→21:23)
[2019-11-04] MEDS: CYANOCOBALAMIN (VITAMIN B-12) 1,000 MCG TABLET. PO SCH (08:23)
[2019-11-04] MEDS: PRIMIDONE 250 MG TABLET PO SCH ×3 (08:23→21:21)
[2019-11-04] MEDS: POTASSIUM CHLORIDE 20 MEQ TABLET.ER. PO SCH ×2 (08:23→15:27)
[2019-11-04] MEDS: FERROUS SULFATE 325 MG TABLET. PO SCH ×2 (08:23→15:27)
[2019-11-04] MEDS: NICOTINE 14MG PATCH. TD SCH (08:24)
[2019-11-04] MEDS: METOPROLOL TART IMMED RELEASE 25 MG TABLET PO SCH ×2 (08:28→21:22)
[2019-11-04 10:33] VITALS: BP 107/54
--- NOTE | 2019-11-04 14:29 | PDOC2 ---
CARDIAC CONSULT DATE OF CONSULT Date Of Consult DATE: 11/05/19 REASON FOR CONSULT Reason for Consult Atrial fibrillation, pulmonary embolism REFERRING PHYSICIAN Referring Physician Dr. Bunch SOURCE Source: Chart review, Patient HPI History of Present Illness The patient is a 73-year-old male who was admitted through the emergency room for episodes of fever, hypotension and nausea and vomiting. He was diagnosed with pneumonia and also found on CT scan of the chest to have acute and chronic bilateral pulmonary emboli. Patient had been on Coumadin at his intermediate. Additionally he had he has a history of atrial fibrillation which has been reasonably controlled. He is now feeling relatively well. He denies chest pain, dizziness or lightheadedness. He reports mild shortness of breath. His nausea and vomiting have resolved. PAST MEDICAL HISTORY Cardiovascular: AFIB, HTN Pulmonary: COPD, Pneumonia, Other (Pulmonary emboli) GI: GERD Renal/: Chronic renal insuff PAST SURGICAL HISTORY Past Surgical History: Other (hip nailing in August 2019) FAMILY HISTORY Family History: Hypertension SOCIAL HISTORY Smoke: <1 pack per day ALCOHOL: none CURRENT MEDICATIONS Current Medications Current Medications Sodium Chloride 1,000 ml @ 1,000 mls/hr Q1H IV Last administered on 11/03/19at 11:40; Start 11/03/19 at 10:52; Stop 11/03/19 at 11:51; Status DC Iohexol (Omnipaque 350 Mg/ml) 100 ml 1X ONCE IV Last administered on 11/03/19at 12:32; Start 11/03/19 at 12:45; Stop 11/03/19 at 12:46; Status DC Info (Do NOT chart on this entry -- for MONITORING) 1 each PRN DAILY PRN MC SEE COMMENTS; Start 11/03/19 at 12:30; Stop 11/05/19 at 12:29 Piperacillin Sod/ Tazobactam Sod 3.375 gm/Sodium Chloride 50 ml @ 100 mls/hr 1X ONCE IV Last administered on 11/03/19at 13:47; Start 11/03/19 at 14:15; Stop 11/03/19 at 14:44; Status DC Sodium Chloride 50 ml @ As Directed STK-MED ONCE .ROUTE ; Start 11/03/19 at 13:48; Stop 11/03/19 at 13:48; Status DC Piperacillin Sod/ Tazobactam Sod (Zosyn) 3.375 gm STK-MED ONCE IV ; Start 11/03/19 at 13:48; Stop 11/03/19 at 13:49; Status DC Sodium Chloride 50 ml @ As Directed STK-MED ONCE .ROUTE ; Start 11/03/19 at 13:48; Stop 11/03/19 at 13:49; Status DC Ondansetron HCl (Zofran) 4 mg PRN Q4HRS PRN IV NAUSEA/VOMITING; Start 11/03/19 at 14:15; Stop 11/04/19 at 14:14; Status DC Sodium Chloride 1,000 ml @ 75 mls/hr [id number] IV ; Start 11/03/19 at 14:03; Stop 11/03/19 at 18:41; Status DC Albuterol/ Ipratropium (Duoneb) 3 ml RTQID NEB Last administered on 11/03/19at 20:40; Start 11/03/19 at 16:00; Stop 11/03/19 at 20:49; Status DC Levofloxacin/ Dextrose 150 ml @ 100 mls/hr 1X ONCE IV ; Start 11/03/19 at 14:45; Stop 11/03/19 at 18:41; Status DC Calcium Gluconate 1,000 mg 1X ONCE IV Last administered on 11/03/19at 16:03; Start 11/03/19 at 15:30; Stop 11/03/19 at 15:31; Status DC Digoxin (Lanoxin) 125 mcg DAILY16 PO Last administered on 11/03/19at 19:44; Start 11/03/19 at 19:00 Famotidine (Pepcid) 20 mg HS PO Last administered on 11/03/19at 21:31; Start 11/03/19 at 21:00 Ferrous Sulfate (Feosol) 325 mg BIDWMEALS PO Last administered on 11/04/19at 08:23; Start 11/03/19 at 21:00 Albuterol/ Ipratropium (Duoneb) 3 ml QID NEB Last administered on 11/04/19at 11:16; Start 11/03/19 at 21:00 Metoprolol Tartrate (Lopressor) 12.5 mg BID PO ; Start 11/03/19 at 21:00 Nicotine (Nicoderm Cq 14mg) 1 patch DAILY TD Last administered on 11/04/19at 08:24; Start 11/04/19 at 09:00 Phenytoin Sodium (Dilantin) 200 mg BID PO Last administered on 11/04/19at 08:22; Start 11/03/19 at 21:00 Potassium Chloride (Klor-Con) 20 meq BIDWMEALS PO Last administered on 11/04/19at 08:23; Start 11/03/19 at 21:00 Primidone (Mysoline) 250 mg TID PO Last administered on 11/04/19at 12:58; Start 11/03/19 at 21:00 Calcium Carbonate/ Glycine (Tums) 500 mg PRN AFTMEALHC PRN PO INDIGESTION; Start 11/03/19 at 18:15 Cyanocobalamin (Vitamin B-12) 1,000 mcg DAILY PO Last administered on 11/04/19at 08:23; Start 11/04/19 at 09:00 Ondansetron HCl (Zofran Odt) 4 mg Q8HRS PO Last administered on 11/04/19at 12:58; Start 11/03/19 at 22:00 Warfarin Sodium (Coumadin) 7.5 mg DAILY16 PO ; Start 11/04/19 at 16:00; Stop 11/03/19 at 18:05; Status DC Piperacillin Sod/ Tazobactam Sod 3.375 gm/Sodium Chloride 50 ml @ 100 mls/hr Q6HRS IV Last administered on 11/04/19at 11:21; Start 11/03/19 at 22:00 Linezolid 300 ml @ 300 mls/hr Q12HR IV Last administered on 11/04/19at 08:22; Start 11/03/19 at 21:00 Warfarin Sodium (Coumadin Per Pharmacy) 1 each PRN DAILY PRN MC SEE COMMENTS Last administered on 11/03/19at 19:17; Start 11/03/19 at 18:15; Stop 11/04/19 at 14:26; Status DC Warfarin Sodium (Coumadin) 7.5 mg DAILY16 PO Last administered on 11/03/19at 19:44; Start 11/03/19 at 19:00; Stop 11/04/19 at 14:10; Status DC Sodium Chloride 1,000 ml @ 75 mls/hr [id number] IV Last administered on 11/03/19at 19:43; Start 11/03/19 at 18:45 Guaifenesin (Mucinex Er) 600 mg BID PO ; Start 11/04/19 at 21:00 Warfarin Sodium (Coumadin) 9 mg DAILY16 PO ; Start 11/04/19 at 16:00 Warfarin Sodium (Coumadin Per Physician) 1 each PRN DAILY PRN MC SEE COMMENTS; Start 11/04/19 at 14:30 Active Scripts Active Reported Zofran (Ondansetron Hcl) 4 Mg Tablet 1 Tab PO Q8HRS Vitamin B-12 (Cyanocobalamin (Vitamin B-12)) 1,000 Mcg Tab.subl 1 Tab SL DAILY Tums (Calcium Carbonate) 300 Mg Tab.chew 300 Mg PO Q4HRS PRN Mysoline (Primidone) 250 Mg Tablet 1 Tab PO TID Pepcid (Famotidine) 20 Mg Tablet 1 Tab PO HS NICODERM CQ 14mg (Nicotine) 1 Each Patch.td24 1 Patch TP DAILY Mylanta Maximum Strength Liq (Mag Hydrox/Aluminum Hyd/Simeth) 355 Ml Oral.susp 30 Ml PO Q6HRS PRN Milk Of Magnesia (Magnesium Hydroxide) 400 Mg/5 Ml Oral.susp 400 Mg PO DAILY Metoprolol Tartrate 25 Mg Tablet 0.5 Tab PO BID Metolazone 2.5 Mg Tablet 2.5 Mg PO DAILY Loperamide (Loperamide Hcl) 2 Mg Tablet 2 Mg PO Q6HRS PRN Lomotil Tablet (Diphenoxylate Hcl/Atropine) 1 Each Tablet 1 Tab PO BID Lasix (Furosemide) 20 Mg Tablet 1 Tab PO DAILY Lanoxin (Digoxin) 125 Mcg Tablet 1 Tab PO DAILY16 Klor-Con M20 (Potassium Chloride) 20 Meq Tab.er.prt 1 Tab PO BID Duoneb 0.5-3(2.5) Mg/3 Ml (Albuterol/Ipratropium) 3 Ml Ampul.neb 3 Ml NEB QID Ferrous Sulfate 325 Mg Tablet 1 Tab PO BID Dilantin (Phenytoin Sodium Extended) 100 Mg Capsule 2 Cap PO BID ALLERGIES Allergies: Coded Allergies: No Known Drug Allergies (Unverified , 09/22/19) ROS General: YES: Fatigue Respiratory: YES: Shortness of breath PHYSICAL EXAM General: mild distress HEENT: Atraumatic Lungs: Other (decreased breath sounds) Heart: Other (rate of 98) Abdomen: Normal bowel sounds VITALS Vital Signs Vital Signs Date Time Temp Pulse Resp B/P (MAP) Pulse Ox O2 Delivery O2 Flow Rate FiO2 11/04/19 11:17 97 Room Air 11/04/19 10:33 97.6 72 20 107/54 (71) LABS LABS Laboratory Tests Test 11/03/19 11:23 11/03/19 11:24 11/04/19 06:13 White Blood Count 5.9 x10^3/uL (4.0-11.0) Red Blood Count 3.83 x10^6/uL (4.30-5.70) Hemoglobin 12.1 g/dL (13.0-17.5) Hematocrit 37.6 % (39.0-53.0) Mean Corpuscular Volume 98 fL (79-100) Mean Corpuscular Hemoglobin 32 pg (25-35) Mean Corpuscular Hemoglobin Concent 32 g/dL (31-37) Red Cell Distribution Width 17.8 % (11.5-14.5) Platelet Count 198 x10^3/uL (140-400) Neutrophils (%) (Auto) 65 % (31-73) Lymphocytes (%) (Auto) 19 % (24-48) Monocytes (%) (Auto) 9 % (0-9) Eosinophils (%) (Auto) 7 % (0-3) Basophils (%) (Auto) 1 % (0-3) Neutrophils # (Auto) 3.8 x10^3uL (1.8-7.7) Lymphocytes # (Auto) 1.1 x10^3/uL (1.0-4.8) Monocytes # (Auto) 0.5 x10^3/uL (0.0-1.1) Eosinophils # (Auto) 0.4 x10^3/uL (0.0-0.7) Basophils # (Auto) 0.0 x10^3/uL (0.0-0.2) Prothrombin Time 24.5 SEC (9.4-11.4) 22.2 SEC (9.4-11.4) Prothromb Time International Ratio 2.4 (0.9-1.1) 2.1 (0.9-1.1) Activated Partial Thromboplast Time 43 SEC (23-33) Sodium Level 135 mmol/L (136-145) Potassium Level 4.3 mmol/L (3.5-5.1) Chloride Level 104 mmol/L (98-107) Carbon Dioxide Level 25 mmol/L (21-32) Anion Gap 6 (6-14) Blood Urea Nitrogen 29 mg/dL (8-26) Creatinine 0.9 mg/dL (0.7-1.3) Estimated GFR (Cockcroft-Gault) 82.3 BUN/Creatinine Ratio 32 (6-20) Glucose Level 95 mg/dL (70-99) Lactic Acid Level 0.9 mmol/L (0.4-2.0) Calcium Level 7.9 mg/dL (8.5-10.1) Total Bilirubin 0.3 mg/dL (0.2-1.0) Aspartate Amino Transf (AST/SGOT) 22 U/L (15-37) Alanine Aminotransferase (ALT/SGPT) 27 U/L (16-63) Alkaline Phosphatase 174 U/L (46-116) Total Protein 6.6 g/dL (6.4-8.2) Albumin 2.7 g/dL (3.4-5.0) Albumin/Globulin Ratio 0.7 (1.0-1.7) Lipase 87 U/L (73-393) Digoxin Level 0.3 ng/dL (0.9-2.0) Digoxin Last Dose Date 11/02/19 Digoxin Last Dose Time 1900 Phenytoin (Dilantin) Level 5.4 mcg/mL (10.0-20.0) Phenytoin Last Dose Date 11/02/19 Phenytoin Last Dose Time 1900 Influenza Type A (Rapid) Negative (NEGATIVE) Influenza Type B (Rapid) Negative (NEGATIVE) IMAGES IMAGES CT scan with acute and chronic bilateral pulmonary emboli. AAA EKG EKG No acute ischemic changes ASSESSMENT/PLAN Assessment/Plan 1. Pneumonia. On antibiotics. Continuing present treatment. 2. Acute and chronic bilateral pulmonary emboli. On Coumadin. Monitoring INR and would run at a higher level than average. We'll check with the pulmonary service. He can echocardiogram for possible right sided strain 3. Atrial fibrillation. Anticoagulation and monitoring. 4. COPD. Continue underlying pulmonary medications with the treatment of the pat ient's pneumonia. 5. Hypertension. Reasonable control. Continue to monitor. Thank you for allowing us to participate in the care of your patient. LARRY SIMEON MD Nov 04, 2019 14:29
[2019-11-04 14:46] VITALS: BP 114/68
[2019-11-04] MEDS: DIGOXIN 125 MCG TABLET PO SCH (15:26)
[2019-11-04] MEDS: WARFARIN 3 MG TABLET. PO SCH (15:27)
[2019-11-04] MEDS ORDERED: WARFARIN 7.5 MG TABLET. PO SCH (16:00)
--- NOTE | 2019-11-04 18:45 | NUR ---
Mild-Moderate Dysphagia. Mastication inefficiency contributes to oral dysphagia. Pt w/ prolonged mastication and oral residue w/ solids. Liquid wash or alternating w/ puree efficient to decrease residue. S/s aspiration w/ trials of thin liquids were more overt w/ straw vs cup drinking. Honey thick liquids eliminated s/s aspiration. Recommendations: Continue current diet of regular w/ puree meat. Honey thick liquids no straws. General swallow precautions including sitting upright and alternating consistencies. ST f/u for dysphagia. D/w RN-to enter diet modification to honey thick liquids.
[2019-11-04] MEDS: FAMOTIDINE 20 MG TABLET PO SCH (21:22)
[2019-11-04 21:38] VITALS: BP 113/64
[2019-11-05] MEDS: PIPERACILLIN/TAZOBACTAM 3.375 GM in IV NORMAL SALINE 50ML 50 ML IV SCH ×4 (00:05→17:34)
[2019-11-05 00:23] VITALS: BP 117/58
--- NOTE | 2019-11-05 05:06 | PN ---
DATE: 11/04/2019 SUBJECTIVE: The patient is sitting in his chair comfortably, in no apparent distress. He denied any chest pain, denied any shortness of breath. Denied any cough, phlegm. He has had no nausea or vomiting. Denied any diarrhea. He stated that his diarrhea comes back once a week. PHYSICAL EXAMINATION: GENERAL: When I examined him today, he looked well and was clearly in no apparent respiratory distress. No pallor, jaundice, cyanosis or thyromegaly. No jugular venous distention. No lower limb edema. VITAL SIGNS: His heart rate was 72, blood pressure was 107/54, temperature was 97.6, respiratory rate 20. His oxygen saturation was 96% on room air. HEAD, EYES, EARS, NOSE AND THROAT: Showed normocephalic, atraumatic. NECK: Supple. HEART: Showed normal first and second heart sounds. No gallop or murmur. CHEST: Showed central trachea, equally reduced expansion, reduced air entry, vesicular sounds with bilateral basal crepitation. I could not appreciate any rhonchi. ABDOMEN: Scaphoid, soft, nontender. NEUROLOGIC: He is awake, alert, responding appropriately. All cranial nerves are intact. He moves extremities without difficulty. He walks with a walker. He is unsteady on his feet. His intake was 2188, output was 950. LABORATORY DATA: His lab work this morning showed his prothrombin time was 22.2, INR of 2.1. His white cell count yesterday was 5900, hemoglobin 12, hematocrit 38, MCV 98 and platelet count of 198,000. His chemistry showed a serum sodium 135, potassium 4.3, chloride 104, bicarbonate 25, anion gap of 6, BUN 29, creatinine was 0.9, estimated GFR was 82 mL per minute. His glucose was 95, lactic acid was 0.9, calcium was 7.9. Total bilirubin, AST, ALT, alkaline phosphatase were normal. Total protein was 6.6. Albumin was 2.7. His serum digoxin was 0.3 and phenytoin was 5.3. ASSESSMENT: 1. Healthcare-associated pneumonia, for which I started him on Zyvox and Zosyn. 2. Bilateral pulmonary emboli. He should continue with Coumadin and aim for an INR of 2-2.5. 3. For his seizure disorder, I will continue with the current dose of phenytoin 200 mg extended release capsules twice a day. I will repeat his phenytoin trough level given the recurrence of other medical problems that include atrial fibrillation for which his heart rate is well controlled on digoxin. He is on digoxin as well as metoprolol tartrate and his heart rate is well controlled. He is well anticoagulated with current INR of 2.5. 4. Chronic obstructive pulmonary disease. 5. Mild cognitive impairment. 6. The patient has recurrent episode of pneumonia, raising the possibility that the patient has either dysphagia and recurrent aspiration pneumonia and/or some form of post-obstructive pneumonia, as he was diagnosed with pneumonia on 10/01/2019 and has grown numerous bacteria including Citrobacter freundii, Pseudomonas aeruginosa, Pseudomonas fluorescens, and Pantoea agglomerans, all of them likely sensitive to piperacillin and tazobactam. I have spoken with Dr. Albarado about the fact that he has old and new pulmonary emboli with evidence of right ventricular strain pattern and whether this represents a failure of Coumadin. HIRA URIAS MD DR: COLIN/aryan JOB#: [id number] / [id number]
[2019-11-05] MEDS: IPRATRPIUM/ALBUTEROL 0.5/2.5MG 3 ML NEBU. NEB SCH ×4 (05:24→20:29)
[2019-11-05] MEDS: ONDANSETRON ODT 4 MG TAB.RAPDIS PO SCH ×3 (05:36→20:48)
[2019-11-05 06:00] VITALS: BP 113/64
[2019-11-05] MEDS: LACTOBACILLUS RHAMNOSUS GG 1 CAPSULE. PO SCH ×2 (09:00→20:48)
[2019-11-05] MEDS: POTASSIUM CHLORIDE 20 MEQ TABLET.ER. PO SCH ×2 (09:51→17:34)
[2019-11-05] MEDS: PHENYTOIN SODIUM EXTENDED 100 MG CAPSULE PO SCH ×2 (09:51→20:48)
[2019-11-05] MEDS: CYANOCOBALAMIN (VITAMIN B-12) 1,000 MCG TABLET. PO SCH (09:51)
[2019-11-05] MEDS: NICOTINE 14MG PATCH. TD SCH (09:51)
[2019-11-05] MEDS: FERROUS SULFATE 325 MG TABLET. PO SCH ×2 (09:52→17:34)
[2019-11-05] MEDS: PRIMIDONE 250 MG TABLET PO SCH ×3 (09:52→20:49)
[2019-11-05] MEDS: METOPROLOL TART IMMED RELEASE 25 MG TABLET PO SCH ×2 (09:52→20:49)
[2019-11-05] MEDS: IV NORMAL SALINE 1,000ML 1,000 ML IV SCH (10:45)
--- NOTE | 2019-11-05 13:03 | PDOC ---
Progress Note. Subjective: Patient seen and examined The patient looks and feels better today Objective: Vital Signs/I&O: Vital Signs Date Time Temp Pulse Resp B/P (MAP) Pulse Ox O2 Delivery O2 Flow Rate FiO2 11/05/19 10:16 96 Room Air 11/05/19 09:52 74 113/64 11/05/19 06:00 97.6 18 I & O 11/04/19 11/04/19 11/05/19 15:00 23:00 07:00 Intake Total 860 ml 760 ml 100 ml Balance 860 ml 760 ml 100 ml Labs: Laboratory Tests Test 11/05/19 06:30 Prothrombin Time 28.0 SEC (9.4-11.4) H Prothrombin Time INR 2.7 (0.9-1.1) H Physical Exam: Chest. Mildly decreased breath sounds CV. irreg. irreg. Abdomen. Soft. Assessment: 1. Pneumonia. On antibiotics. Continuing present treatment. Feeling better. 2. Acute and chronic bilateral pulmonary emboli. On Coumadin. INR at 2.7. We'll check with the pulmonary service. Echocardiogram for possible right sided strain 3. Atrial fibrillation. Anticoagulation and monitoring. 4. COPD. Continue underlying pulmonary medications with the treatment of the patient's pneumonia. 5. Hypertension. Reasonable control. Continue to monitor. LARRY SIMEON MD Nov 05, 2019 13:03
--- NOTE | 2019-11-05 15:05 | NUR ---
Patients and DPOA requested patient be changed to mechanical soft diet. She states this is what he was recieving at [facility].
[2019-11-05 15:53] VITALS: BP 101/59
[2019-11-05] MEDS: DIGOXIN 125 MCG TABLET PO SCH (17:34)
[2019-11-05] MEDS: WARFARIN 3 MG TABLET. PO SCH (17:34)
[2019-11-05] MEDS: FAMOTIDINE 20 MG TABLET PO SCH (20:49)
[2019-11-05 21:03] VITALS: BP 115/54
[2019-11-05 23:37] VITALS: BP 109/55
--- NOTE | 2019-11-05 23:45 | PN ---
DATE: 11/05/2019 SUBJECTIVE: The patient is sitting comfortably in his chair, in no apparent distress, sleeping comfortably. On questioning him, he denied any complaint. He was seen yesterday by the speech therapist who recommended continuing current diet of regular with pureed meat and started him on honey thickened liquid, no straws. He was seen by the physical therapist and apparently he did well and moved around, walked with a walker. PHYSICAL EXAMINATION: GENERAL: When I saw him this afternoon, he looked well and was clearly in no apparent respiratory distress. No pallor, jaundice, cyanosis or thyromegaly. No jugular venous distention. Mild bilateral lower limb edema. VITAL SIGNS: His heart rate was 74, blood pressure 113/64, temperature 97.6, respiratory rate was 18 and oxygen saturation was 96% on room air. HEAD, EYES, EARS, NOSE AND THROAT: Showed normocephalic, atraumatic. NECK: Supple. HEART: Showed normal first and second heart sounds. No gallop or murmur. CHEST: Shows central trachea, equally reduced expansion, reduced air entry, vesicular sounds with crepitation bilaterally. I could not appreciate any rhonchi or wheezing. ABDOMEN: Slightly distended, soft, nontender. NEUROLOGIC: He was sleepy, but arousable. All cranial nerves are intact. He moves extremities without difficulty, ambulates with a walker. His intake over the last 24 hours was 2200, output was 950. LABORATORY DATA: He has no lab work done today; however, his prothrombin time was 28. INR of 2.7. His influenza A and B were negative. ASSESSMENT: 1. Healthcare-associated pneumonia for which I started him on Zyvox and Zosyn. 2. Bilateral pulmonary emboli for which we continued his Coumadin with the aim of maintaining an INR of 2-2.5. 3. Seizure disorder. I continued his phenytoin 200 mg extended release capsule twice a day. 4. He has multiple other medical problems including: A. Atrial fibrillation, however, his heart rate is well controlled. He is currently on digoxin, metoprolol and he is well anticoagulated. His INR is actually 2.7. 5. Chronic obstructive pulmonary disease. 6. Mild cognitive impairment. 7. The patient has recurrent episodes of pneumonia, raising the possibility that the patient has either dysphagia, recurrent aspiration pneumonia or some form of obstructive pneumonia. In fact, he was diagnosed with pneumonia and treated at [facility] on 10/01/2019. At that time, his sputum culture has grown numerous bacteria including Citrobacter freundii, Pseudomonas aeruginosa, Pseudomonas fluorescens and Pantoea agglomerans. All of them likely are sensitive to piperacillin and tazobactam. PLAN: My plan is to continue with IV antibiotic. Continue with Coumadin. Continue to monitor his PT/INR and adjust Coumadin to maintain INR between 2-2.5. Continue with phenytoin for seizure disorder. HIRA URIAS MD DR: COLIN/aryan JOB#: [id number] / [id number]
[2019-11-06] MEDS: IV NORMAL SALINE 1,000ML 1,000 ML IV SCH ×2 (00:05→13:25)
[2019-11-06] MEDS: PIPERACILLIN/TAZOBACTAM 3.375 GM in IV NORMAL SALINE 50ML 50 ML IV SCH ×4 (01:09→18:05)
[2019-11-06] MEDS: IPRATRPIUM/ALBUTEROL 0.5/2.5MG 3 ML NEBU. NEB SCH ×4 (05:19→20:41)
[2019-11-06 06:02] VITALS: BP 110/54
[2019-11-06] MEDS: ONDANSETRON ODT 4 MG TAB.RAPDIS PO SCH ×3 (06:17→21:33)
[2019-11-06 07:01] LABS: BASO % 1 % (0-3); EOS # 0.4 x10^3/uL (0.0-0.7); EOS % 11 % (0-3); HEMATOCRIT 35.8 % (39.0-53.0); HEMOGLOBIN 11.6 g/dL (13.0-17.5); LYMPH % 26 % (24-48); MEAN CORPUSCULAR HEMOGLOBIN 32 pg (25-35); MEAN CORPUSCULAR HGB CONC 32 g/dL (31-37); MEAN CORPUSCULAR VOLUME 98 fL (79-100); MONO # 0.4 x10^3/uL (0.0-1.1); MONO % 9 % (0-9); NEUT % 53 % (31-73); PLATELET COUNT 183 x10^3/uL (140-400); RED BLOOD COUNT 3.65 x10^6/uL (4.30-5.70); RED CELL DISTRIBUTION WIDTH 17.3 % (11.5-14.5); WHITE BLOOD COUNT 3.9 x10^3/uL (4.0-11.0)
[2019-11-06 07:12] LABS: ALBUMIN 2.5 g/dL (3.4-5.0); ALBUMIN/GLOBULIN RATIO 0.7 (1.0-1.7); CALCIUM 7.9 mg/dL (8.5-10.1); GFR 72.8; POTASSIUM 4.8 mmol/L (3.5-5.1); TOTAL BILIRUBIN 0.2 mg/dL (0.2-1.0); TOTAL PROTEIN 6.2 g/dL (6.4-8.2)
[2019-11-06 07:47] LABS: OVALOCYTES FEW; PLT ESTIMATE ADEQUATE (ADEQUATE); POIKILOCYTOSIS SLIGHT; TEAR DROP CELLS OCC
[2019-11-06 07:49] LABS: ANISOCYTOSIS SLIGHT; POLYCHROMASIA PRESENT; SCHISTOCYTES OCC
[2019-11-06] MEDS: CYANOCOBALAMIN (VITAMIN B-12) 1,000 MCG TABLET. PO SCH (08:20)
[2019-11-06] MEDS: METOPROLOL TART IMMED RELEASE 25 MG TABLET PO SCH ×2 (08:20→21:33)
[2019-11-06] MEDS: FERROUS SULFATE 325 MG TABLET. PO SCH ×2 (08:20→16:18)
[2019-11-06] MEDS: PRIMIDONE 250 MG TABLET PO SCH ×3 (08:21→21:36)
[2019-11-06] MEDS: PHENYTOIN SODIUM EXTENDED 100 MG CAPSULE PO SCH ×2 (08:21→21:33)
[2019-11-06] MEDS: POTASSIUM CHLORIDE 20 MEQ TABLET.ER. PO SCH ×2 (08:21→16:18)
[2019-11-06] MEDS: LACTOBACILLUS RHAMNOSUS GG 1 CAPSULE. PO SCH ×2 (08:21→21:33)
[2019-11-06] MEDS: NICOTINE 14MG PATCH. TD SCH (08:22)
--- NOTE | 2019-11-06 08:29 | PDOC ---
MICHELE LAWSON CUSTOMER LOGISTICS MANAGER 11/06/19 0829: CARDIO Progress Notes Date & Time Date of Service DATE: 11/06/19 TIME: 08:23 Time of Evaluation 08:23 Subjective Notes No CP, SOA, palpitations, dizziness. Vitals Vitals Vital Signs Date Time Temp Pulse Resp B/P (MAP) Pulse Ox O2 Delivery O2 Flow Rate FiO2 11/06/19 06:02 97.3 71 18 110/54 (72) 92 Room Air Weight Weight [ ] Input and Output I.O. Intake and Output 11/06/19 06:59 Intake Total 1110 ml Balance 1110 ml Intake Oral 360 ml IV Total 750 ml # Voids 3 Laboratory Labs Laboratory Tests Test 11/05/19 06:30 11/06/19 06:42 Prothrombin Time 28.0 SEC (9.4-11.4) 26.3 SEC (9.4-11.4) Prothromb Time International Ratio 2.7 (0.9-1.1) 2.5 (0.9-1.1) White Blood Count 3.9 x10^3/uL (4.0-11.0) Red Blood Count 3.65 x10^6/uL (4.30-5.70) Hemoglobin 11.6 g/dL (13.0-17.5) Hematocrit 35.8 % (39.0-53.0) Mean Corpuscular Volume 98 fL (79-100) Mean Corpuscular Hemoglobin 32 pg (25-35) Mean Corpuscular Hemoglobin Concent 32 g/dL (31-37) Red Cell Distribution Width 17.3 % (11.5-14.5) Platelet Count 183 x10^3/uL (140-400) Neutrophils (%) (Auto) 53 % (31-73) Lymphocytes (%) (Auto) 26 % (24-48) Monocytes (%) (Auto) 9 % (0-9) Eosinophils (%) (Auto) 11 % (0-3) Basophils (%) (Auto) 1 % (0-3) Neutrophils # (Auto) 2.0 x10^3uL (1.8-7.7) Lymphocytes # (Auto) 1.0 x10^3/uL (1.0-4.8) Monocytes # (Auto) 0.4 x10^3/uL (0.0-1.1) Eosinophils # (Auto) 0.4 x10^3/uL (0.0-0.7) Basophils # (Auto) 0.0 x10^3/uL (0.0-0.2) Platelet Estimate Adequate (ADEQUATE) Polychromasia Present Poikilocytosis Slight Basophilic Stippling Present Anisocytosis Slight Tear Drop Cells Occ Ovalocytes Few Crenated Cell Present Schistocytes Occ Sodium Level 141 mmol/L (136-145) Potassium Level 4.8 mmol/L (3.5-5.1) Chloride Level 107 mmol/L (98-107) Carbon Dioxide Level 28 mmol/L (21-32) Anion Gap 6 (6-14) Blood Urea Nitrogen 21 mg/dL (8-26) Creatinine 1.0 mg/dL (0.7-1.3) Estimated GFR (Cockcroft-Gault) 72.8 BUN/Creatinine Ratio 21 (6-20) Glucose Level 94 mg/dL (70-99) Calcium Level 7.9 mg/dL (8.5-10.1) Total Bilirubin 0.2 mg/dL (0.2-1.0) Aspartate Amino Transf (AST/SGOT) 20 U/L (15-37) Alanine Aminotransferase (ALT/SGPT) 21 U/L (16-63) Alkaline Phosphatase 150 U/L (46-116) Total Protein 6.2 g/dL (6.4-8.2) Albumin 2.5 g/dL (3.4-5.0) Albumin/Globulin Ratio 0.7 (1.0-1.7) Microbiology Micro Microbiology 11/03/19 Blood Culture - Preliminary, Resulted NO GROWTH AFTER 2 DAYS... Physical Exams HEENT: Neck Supple W Full Motion Chest: Symmetric Lungs: Other (diminished ) Heart: S1S2, RRR Abdomen: Soft N/T Extremities: No Edema Neurology: alert, follow commands, confused Assessment Assessment 1. HCAP, recurrent. ? aspiration PNA. 2. PE; OAC with warfarin. INR 2.5 3. Paroxysmal AFIB. maintaining SR. rate controlled with dig and metoprolol 4. Hypertension; controlled 5. Seizure disorder; on Dilantin Recommendations Echo to assess RV with PE Continue metoprolol and digoxin for rate control Warfarin therapy Ongoing antibiotic therapy for treatment of PNA. Supportive care LC BROWNING MD 11/06/19 1616: CARDIO Progress Notes Assessment Assessment Patient seen and examined. Agree with COMPUTER SYSTEMS DESIGN ANALYST's assessment and plan. PAF maintaining sinus rhythm. 2-D echo showed LVEF 60-65% with moderate to severe aortic stenosis. Continue warfarin for stroke prophylaxis and for PE MICHELE LAWSON APRN Nov 06, 2019 08:29 LC BROWNING MD Nov 06, 2019 16:16
[2019-11-06 10:31] VITALS: BP 112/47
[2019-11-06 14:29] VITALS: BP 132/65
--- NOTE | 2019-11-06 15:05 | CARD ---
MR#: [id number] Date of Study: 11/06/2019 Ordering Physician: LARRY SIMEON, Referring Physician: LARRY SIMEON, Tech: Ronna Cabral. [facility] APPROVED REPORT EXAM: Two-dimensional and M-mode echocardiogram with Doppler and color Doppler. Other Information Quality : Technically LimitedHR: 90bpm Rhythm : Atrial FibrillationTechnically limited study due to smoking. INDICATION PE 2D DIMENSIONS RVDd3.5 (2.9-3.5cm)Left Atrium(2D)4.3 (1.6-4.0cm) IVSd1.1 (0.7-1.1cm)Aortic Root(2D)3.6 (2.0-3.7cm) LVDd4.5 (3.9-5.9cm)PWd1.1 (0.7-1.1cm) LVDs2.8 (2.5-4.0cm)FS (%) 36.6 % SV60.9 mlLVEF(%)66.5 (>50%) Aortic Valve AoV Peak Lizandro.394.7cm/sAoV JYZ270.8cm AO Peak GR.62.3mmHgAO Mean GR.47mmHg VALERIANO (VMAX)1.29qr9RSB (VTI)0.94cm2 AI P 1/2 [id number] Mitral Valve MV E Bzaiynbs624.8cm/sMV E Peak Gr.97mmHg MV DECEL [id number] A Ltagqwva46.3cm/s E/A Ratio1.6MV A Gpzlbfsm34vt Tricuspid Valve TR P. Hbqcntlu611np/sRAP FXQHNVIC8jdAr TR Peak Gr.81dnGaPJZM93iuMb LEFT VENTRICLE The left ventricle is normal size. There is borderline to mild concentric left ventricular hypertroph y. The left ventricular systolic function is normal. The Ejection Fraction is 60-65%. There is normal LV segmental wall motion. Transmitral Doppler flow pattern is Grade II-pseudonormal filling dynamics . RIGHT VENTRICLE The right ventricle is normal size. There is normal right ventricular wall thickness. The right ventr icular systolic function is normal. ATRIA The left atrium is mildly dilated. The right atrium is mildly dilated. The interatrial septum is inta ct with no evidence for an atrial septal defect or patent foramen ovale as noted on 2-D or Doppler im aging. AORTIC VALVE The aortic valve is probably trileaflet. The aortic valve is not well visualized. Doppler and Color F low revealed mild to moderate aortic regurgitation. There is moderate to severe aortic stenosis. Calc ulated aortic valve area is 0.94 cm2 with maximum pressure gradient of 62 mmHg and mean pressure grad ient of 47 mmHg. MITRAL VALVE Mitral annular calcification is mild. There is no evidence of mitral valve prolapse. There is no mitr al valve stenosis. Doppler and Color-flow revealed mild mitral regurgitation. TRICUSPID VALVE The tricuspid valve is normal in structure and function. Doppler and Color Flow revealed mild tricusp id regurgitation. The PA pressure was estimated at 34 mmHg. There is no tricuspid valve prolapse or v egetation. There is no tricuspid valve stenosis. PULMONIC VALVE The pulmonic valve is not well visualized. GREAT VESSELS The aortic root is normal in size. The IVC was not visualized. PERICARDIAL EFFUSION There is no evidence of significant pericardial effusion. Critical Notification Critical Value: No <Conclusion> The left ventricular systolic function is normal. The Ejection Fraction is 60-65%. There is normal LV segmental wall motion. There is moderate to severe aortic stenosis. Calculated aortic valve area is 0.94 cm2 with maximum pressure gradient of 62 mmHg and mean pressure gradient of 47 mmHg. Mild to moderate aortic regurgitation. Mild mitral regurgitation. Mld tricuspid regurgitation. The PA pressure was estimated at 34 mmHg. There is no evidence of significant pericardial effusion. Signed by : Ariel Uribe, Electronically Approved : 11/06/2019 15:04:30
--- NOTE | 2019-11-06 15:32 | NUR ---
NURSING NOTES: PATIENT IS ALERT AND ORIENTED TO TIME AND SELF THIS AM. PATIENT HAS HAD NO C/O PAIN NOTED THUS FAR THIS SHIFT. PATIENT DOES HAVE COMPLAINTS ABOUT THICKENED LIQUIDS AND PUREED MEATS IN DIET. PATIENT EDUCATED OF NEED FOR THIS DIET AND VOICED UNDERSTANDING BUT THAT HE "DOES NOT LIKE IT, BUT WILL EAT IT." NO FURTHER COMPLAINTS NOTED THUS FAR THIS SHIFT. WILL CONTINUE TO MONITOR. DR. URIAS HERE TO SEE PATIENT TODAY. PLAN IS TO CONTINUE ANTIBIOTICS FOR TODAY AND DISCHARGE BACK TO [facility] TOMORROW (11/07/2019).
[2019-11-06] MEDS: DIGOXIN 125 MCG TABLET PO SCH (16:17)
[2019-11-06] MEDS: WARFARIN 3 MG TABLET. PO SCH (16:18)
[2019-11-06 19:41] VITALS: BP 133/56
[2019-11-06] MEDS: FAMOTIDINE 20 MG TABLET PO SCH (21:32)
[2019-11-06 22:19] VITALS: BP 120/62
[2019-11-07] MEDS: IV NORMAL SALINE 1,000ML 1,000 ML IV SCH (02:45)
[2019-11-07] MEDS: IPRATRPIUM/ALBUTEROL 0.5/2.5MG 3 ML NEBU. NEB SCH ×2 (04:21→10:37)
[2019-11-07 04:59] VITALS: BP 150/64
[2019-11-07] MEDS: PIPERACILLIN/TAZOBACTAM 3.375 GM in IV NORMAL SALINE 50ML 50 ML IV SCH ×4 (06:25→12:00)
[2019-11-07] MEDS ORDERED: ONDANSETRON ODT 4 MG TAB.RAPDIS PO PRN (08:15)
--- NOTE | 2019-11-07 08:38 | PN ---
DATE: 11/06/2019 SUBJECTIVE: The patient is resting slightly propped up in bed, in no apparent respiratory distress. He continues to have recurrent episode of cough, it is mostly nonproductive. He has been up and about, walking with a walker with standby assist. He was seen by the Cardiology team and he has had an echocardiogram done today which showed that his left ventricular systolic function is normal, ejection fraction is 60-65%. There is normal left ventricular segmental wall motion. There is crgqlxpl-qg-kgamfn aortic stenosis. The calculated aortic valve area is 0.94 square cm with maximum pressure gradient of 62 mm and mean pressure gradient of 47 mmHg, lpyq-yr-zeiqrjqw aortic regurgitation, mild mitral regurgitation, and mild tricuspid regurgitation. Pulmonary artery pressure was estimated at 34 mmHg. There was no evidence of significant pericardial effusion. PHYSICAL EXAMINATION: GENERAL: When I examined him, he looked well and was clearly in no apparent respiratory distress. No pallor, jaundice, cyanosis or thyromegaly. No jugular venous distention. No lower limb edema. VITAL SIGNS: His heart rate was 73, blood pressure was 132/65, temperature was 97.6, respiratory rate 22, and oxygen saturation was 99% on room air. HEAD, EYES, EARS, NOSE, AND THROAT: Showed normocephalic, atraumatic. NECK: Supple. HEART: Showed normal first and second heart sounds with no gallop or murmur. CHEST: Showed central trachea, equal bilateral expansion and air entry, vesicular sounds with crepitation, mostly posteriorly and bilaterally. I could not appreciate any rhonchi today. ABDOMEN: Scaphoid, soft, nontender. NEUROLOGIC: He is awake, alert, responding appropriately. All cranial nerves are intact. He moves extremities without difficulty, ambulates with a walker. His intake over the last 24 hours was 1700, no output was recorded. LABORATORY DATA: As of this morning, his white cell count was 3900, hemoglobin 11.6, hematocrit 35.8, MCV 98, and platelet count of 183,000. His prothrombin time this morning was 26.3, INR of 2.5. His chemistry showed a serum sodium 141, potassium 4.8, chloride 107, bicarbonate 28, anion gap of 6, BUN 21, creatinine 1, estimated GFR was 72 mL per minute. His glucose was 94, calcium was 7.9. Total bilirubin, AST, ALT were normal. Alkaline phosphatase was elevated. Total protein was 6.2, albumin 2.5. His influenza A and B were negative. ASSESSMENT: 1. In summary, this is a 73-year-old male patient who was admitted with fever, recurrent bouts of nausea and vomiting and diarrhea. He was diagnosed with healthcare-associated pneumonia, for which I started him on Zyvox and Zosyn. 2. Bilateral pulmonary emboli, for which he continues to be on his Coumadin with the aim of maintaining an INR of 2.5. Today, his INR is within therapeutic range. 3. Seizure disorder, for which he is on phenytoin 200 mg extended release capsules twice a day. 4. He has multiple other medical problems including: A. Atrial fibrillation; however, his heart rate is well controlled. He is currently on digoxin and metoprolol and he is well anticoagulated, his INR is 2.5. B. Chronic obstructive pulmonary disease. C. Mild cognitive impairment. D. Recurrent episodes of pneumonia, raising the possibility that the patient has either dysphagia with recurrent aspiration pneumonia or some form of postobstructive pneumonia. He was seen by the speech therapist and she recommended to continue with current diet of regular with pureed meat, honey thick liquids, although the patient himself is not happy with his diet. The patient has had an echocardiogram, which showed that the patient has moderate to severe aortic stenosis with calculated aortic valve area of 0.94 square cm with maximum pressure gradient of 62 mmHg and mean pressure gradient of 47 mmHg. PLAN: My plan is to continue with IV antibiotic for today, continue with Coumadin, and continue with nebulized treatment. We will discharge him tomorrow back to [facility] to continue on oral antibiotic. HIRA URIAS MD DR: COLIN/aryan JOB#: [id number] / [id number]
[2019-11-07] MEDS: CYANOCOBALAMIN (VITAMIN B-12) 1,000 MCG TABLET. PO SCH (09:04)
[2019-11-07] MEDS: POTASSIUM CHLORIDE 20 MEQ TABLET.ER. PO SCH (09:04)
[2019-11-07] MEDS: PHENYTOIN SODIUM EXTENDED 100 MG CAPSULE PO SCH (09:04)
[2019-11-07] MEDS: LACTOBACILLUS RHAMNOSUS GG 1 CAPSULE. PO SCH (09:04)
[2019-11-07] MEDS: FERROUS SULFATE 325 MG TABLET. PO SCH (09:04)
[2019-11-07] MEDS: NICOTINE 14MG PATCH. TD SCH (09:05)
[2019-11-07] MEDS: PRIMIDONE 250 MG TABLET PO SCH (09:05)
[2019-11-07] MEDS: METOPROLOL TART IMMED RELEASE 25 MG TABLET PO SCH (09:06)
--- NOTE | 2019-11-07 09:23 | PDOC ---
CARDIO Progress Notes Date & Time Date of Service DATE: 11/07/19 TIME: 09:20 Time of Evaluation 09:20 Subjective Notes Denies chest pain, shortness of breath, dizziness Vitals Vitals Vital Signs Date Time Temp Pulse Resp B/P (MAP) Pulse Ox O2 Delivery O2 Flow Rate FiO2 11/07/19 09:06 68 150/64 11/07/19 04:59 97.4 24 92 Room Air Weight Weight [ ] Input and Output I.O. Intake and Output 11/07/19 07:00 Intake Total 1360 ml Balance 1360 ml Intake Oral 960 ml IV Total 400 ml # Voids 6 Laboratory Labs Laboratory Tests Test 11/06/19 06:42 11/07/19 05:45 White Blood Count 3.9 x10^3/uL (4.0-11.0) Red Blood Count 3.65 x10^6/uL (4.30-5.70) Hemoglobin 11.6 g/dL (13.0-17.5) Hematocrit 35.8 % (39.0-53.0) Mean Corpuscular Volume 98 fL (79-100) Mean Corpuscular Hemoglobin 32 pg (25-35) Mean Corpuscular Hemoglobin Concent 32 g/dL (31-37) Red Cell Distribution Width 17.3 % (11.5-14.5) Platelet Count 183 x10^3/uL (140-400) Neutrophils (%) (Auto) 53 % (31-73) Lymphocytes (%) (Auto) 26 % (24-48) Monocytes (%) (Auto) 9 % (0-9) Eosinophils (%) (Auto) 11 % (0-3) Basophils (%) (Auto) 1 % (0-3) Neutrophils # (Auto) 2.0 x10^3uL (1.8-7.7) Lymphocytes # (Auto) 1.0 x10^3/uL (1.0-4.8) Monocytes # (Auto) 0.4 x10^3/uL (0.0-1.1) Eosinophils # (Auto) 0.4 x10^3/uL (0.0-0.7) Basophils # (Auto) 0.0 x10^3/uL (0.0-0.2) Platelet Estimate Adequate (ADEQUATE) Polychromasia Present Poikilocytosis Slight Basophilic Stippling Present Anisocytosis Slight Tear Drop Cells Occ Ovalocytes Few Crenated Cell Present Schistocytes Occ Prothrombin Time 26.3 SEC (9.4-11.4) 42.2 SEC (9.4-11.4) Prothromb Time International Ratio 2.5 (0.9-1.1) 4.1 (0.9-1.1) Sodium Level 141 mmol/L (136-145) Potassium Level 4.8 mmol/L (3.5-5.1) Chloride Level 107 mmol/L (98-107) Carbon Dioxide Level 28 mmol/L (21-32) Anion Gap 6 (6-14) Blood Urea Nitrogen 21 mg/dL (8-26) Creatinine 1.0 mg/dL (0.7-1.3) Estimated GFR (Cockcroft-Gault) 72.8 BUN/Creatinine Ratio 21 (6-20) Glucose Level 94 mg/dL (70-99) Calcium Level 7.9 mg/dL (8.5-10.1) Total Bilirubin 0.2 mg/dL (0.2-1.0) Aspartate Amino Transf (AST/SGOT) 20 U/L (15-37) Alanine Aminotransferase (ALT/SGPT) 21 U/L (16-63) Alkaline Phosphatase 150 U/L (46-116) Total Protein 6.2 g/dL (6.4-8.2) Albumin 2.5 g/dL (3.4-5.0) Albumin/Globulin Ratio 0.7 (1.0-1.7) Microbiology Micro Microbiology 11/03/19 Blood Culture - Preliminary, Resulted NO GROWTH AFTER 3 DAYS... Physical Exams HEENT: Neck Supple W Full Motion Chest: Symmetric Lungs: Other (diminished ) Heart: S1S2, RRR Abdomen: Soft N/T Extremities: Other (trace bilateral LE edema ) Neurology: alert, follow commands, confused Assessment Assessment 1. HCAP, recurrent. ? aspiration PNA. 2. PE; OAC with warfarin. INR 4.1 today. 3. Paroxysmal AFIB. maintaining SR. rate controlled with dig and metoprolol 4. Hypertension; controlled 5. Seizure disorder; on Dilantin 6. , moderate to severe. Recommendations Continue metoprolol and digoxin for rate control Warfarin therapy for PE and stroke prophylaxis Outpatient follow up. Consider further workup of on an outpatient basis MICHELE LAWSON APRN Nov 07, 2019 09:23
--- NOTE | 2019-11-07 09:37 | NUR ---
Scheduled Zofran changed from Q8hr to PRN Q8hr. Asked pt if he is having frequent nausea episodes. Pt denied having any issues with nausea. Will continue to assess and monitor. Mary Kate Speech therapist, to follow up with pt today regarding Bedside Swallow Study.
[2019-11-07 10:40] LABS: BGAS PH 7.39 (7.35-7.46)
--- NOTE | 2019-11-07 10:45 | NUR ---
Mary Kate, Speech Therapist evaluated pt. Pt still on Dysphagia 2 diet w/ Ground meats, liquids changed from thickened liquids to regular liquids w/ no straw per Speech Therapist. Pt also needs to be sitting upright for all meals. Will continue to monitor and assess as necessary.
[2019-11-07 10:55] VITALS: BP 109/51
[2019-11-07] MEDS ORDERED: AMOX1TAB61 PO (11:12)
[2019-11-07] MEDS ORDERED: ONDA8TAB9 PO (11:12)
--- NOTE | 2019-11-07 12:36 | DS ---
DATE OF DISCHARGE: 11/03/2019 HOSPITAL COURSE: The patient is a 73-year-old male patient who is currently a resident at [facility], who suffered mechanical fall resultant left hip fracture. He underwent medullary nailing and was transfused 2 units of packed RBCs. He was admitted initially to [facility] on 09/01/2019, was transferred to [facility] on 09/18/2019 to continue the process of rehabilitation, pain management, DVT prophylaxis when he has been in and out at the halfway mostly at [facility] because of pneumonia. According to nursing staff, the patient has also multiple episodes of diarrhea, nausea and vomiting. His blood pressure was low on the day of admission and has a low-grade fever and therefore, the patient was transferred to [facility]. Initially, the plan was for him to go again to [facility]. However, because of the weather, he ended up in our Emergency Room where he was extensively investigated. His lab work showed that his white cell count, platelets, hemoglobin and hematocrit are normal. His prothrombin time and INR was within therapeutic range 24 and 2.4. His chemistry was also unremarkable. Lactic acid is only 0.9. His digoxin is 0.3. Phenytoin was 5.4. His influenza A and B were negative. Chest x-ray showed patchy bibasilar opacities represent atelectasis or consolidation, unchanged. 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 He has also multiple mildly enlarged hilar lymph nodes, likely reactive. He has also bilateral bronchial wall thickening and multifocal mucus plugging, most prominent within the bilateral lower lobes, bilateral lower lobe patchy opacities with tree-in-bud nodularity of right middle lobe, ground glass opacity and pulmonary emphysema. The patient therefore was admitted and started on antibiotic for healthcare-associated pneumonia. We continued also to monitor his PT/INR, kept it within therapeutic range. He has had an echocardiogram done, which basically showed that his left ventricular systolic function is normal, ejection fraction is 60-65%. There is normal left ventricular segmental wall motion. There is rpkwfnqb-sd-owieyd aortic stenosis. The calculated aortic valve area is 0.94 square cm with maximum pressure gradient of 62 mmHg and mean pressure gradient of 47 mmHg, ebnm-cu-yfmaropl aortic regurgitation, mild mitral regurgitation and mild tricuspid regurgitation. He was seen in consultation also by the speech therapist and he basically recommended to continue current diet of regular with pureed meat and honey thickened liquids, no straws, although the patient obviously did not like the fluid thickener. We did also arterial blood gases this morning, which showed a pH of 7.39, pCO2 of 39 and pO2 of 54 with bicarbonate of 24, and oxygen saturation was only 89%, so we did start him on oxygen at 1 liter. As he remained stable, a decision was made to discharge him back to [facility] to continue with oral Augmentin to finish the course of treatment. His INR was supratherapeutic, so we held his Coumadin and I recommended that the halfway repeat his PT/INR tomorrow to adjust his Coumadin again. PHYSICAL EXAMINATION: GENERAL: When I saw him this morning, he was sitting comfortably in his chair, in no apparent respiratory distress. There was definitely no pallor, jaundice, cyanosis or thyromegaly. No jugular venous distention. No lower limb edema. VITAL SIGNS: His heart rate was 72, blood pressure was 109/51, temperature was 97.5, respiratory rate 22, and oxygen saturation was 89% on room air and improved to 92% on 1 liter of oxygen. HEAD, EYES, EARS, NOSE AND THROAT: Showed normocephalic, atraumatic. NECK: Supple. HEART: Showed normal first and second heart sounds. No gallop or murmur. CHEST: Clear to auscultation. No crepitation or rhonchi. Chest x-ray shows central trachea, equally reduced expansion, reduced air entry, vesicular sounds with bilateral basal crepitation. I could not appreciate any rhonchi. ABDOMEN: Scaphoid, soft, nontender. NEUROLOGIC: He is awake, alert, responding appropriately. All cranial nerves are intact. He moves extremities without difficulty, ambulates with a walker with standby assist. LABORATORY DATA: As of this morning showed a white cell count of 3900, hemoglobin 11.6, hematocrit 36, MCV 98 and platelet count of 183,000. Serum sodium 141, potassium 4.8, chloride 107, bicarbonate 28, anion gap of 6, BUN 21, creatinine 1, estimated GFR was 73 mL per minute, his glucose was 94, and calcium was 7.9. Total bilirubin, AST, ALT were normal. Alkaline phosphatase slightly elevated. Total protein was 6.2, albumin was 2.5. Today's prothrombin time was 42.2, INR of 4.1. His influenza A and B were negative. DISCHARGE MEDICATIONS: The patient was discharged back to [facility] to continue on following medications: Amoxicillin 875 mg twice a day for 5 days, ondansetron 8 mg p.o. q. 8 hourly as needed, calcium carbonate for Tums 300 mg every 4 hours, cyanocobalamin 1000 mcg tablet once a day, digoxin 125 mcg once a day, diphenoxylate/atropine for Lomotil one tablet twice a day, famotidine 20 mg at bedtime, ferrous sulfate 325 mg twice a day, furosemide 20 mg once a day, DuoNeb 3 mL by nebulizer 4 times a day, loperamide 2 mg every 6 hours, Mylanta 30 mL every 6 hours as needed, milk of magnesia 30 mL p.o. daily p.r.n. for constipation, metolazone 2.5 mg daily, metoprolol 12.5 mg twice a day, Nicoderm patch 14 mg topically daily, phenytoin 200 mg extended release capsules twice a day, potassium 20 mEq twice a day, and primidone for Mysoline 250 mg 3 times a day. FINAL DISCHARGE DIAGNOSES: 1. Fever, recurrent bouts of nausea, vomiting and diarrhea. None was witnessed actually while in the hospital. 2. He was diagnosed with healthcare-associated pneumonia for which we will start him on Zyvox and Zosyn and now switched to Augmentin. 3. Bilateral pulmonary emboli for which he continues to be on his Coumadin with the aim of maintaining an INR of 2-2.5. 4. Seizure disorder for which he is on phenytoin 200 mg extended release capsules twice a day. 5. He has multiple other medical problems including: A. Atrial fibrillation; however, his heart rate is well controlled and well anticoagulated. B. Chronic obstructive pulmonary disease. C. Mild cognitive impairment. D. Recurrent episode of pneumonia, raising the possibility that the patient has either dysphagia with recurrent aspiration pneumonia or some form of postobstructive pneumonia. He was seen by the speech therapist and he recommended to continue with current diet of regular with pureed meat and honey thickened liquid. E. The patient has an echocardiogram, which showed the patient has fslhpfkf-rh-dqismh aortic stenosis with calculated aortic valve area of 0.94 square cm with maximum pressure gradient of 62 mmHg and mean pressure gradient of 47 mmHg. The patient will be discharged back to [place] to continue the process of rehabilitation and should follow with his care team at [facility]. HIRA URIAS MD DR: COLIN/aryan JOB#: [id number] / [id number]
--- NOTE | 2019-11-07 13:42 | NUR ---
Discharge Note: ANTHONY GARCIA [facility] Discharge instructions and discharge home medications reviewed with Patient and a copy given. All questions have been answered and understanding verbalized. The following instructions and handouts were given: Follow up with electrician bus in December 2018. Take medications as prescribed. Discontinued lines and drains: discontinued peripheral IV. Pressure dressing applied, catheter tip intact. No apparant complications. Patient discharged to [place].
[2019-11-07] MEDS ORDERED: AMOXICILLIN/K CLAV 875/125MG TABLET. PO SCH (21:00)
== END 2019-11-07 13:49 | DRG 177 ==
LOC: ER 09:59 → 1 SOUTH 16:28
PROVIDERS: ADMIT Internal Medicine; ATTEND Internal Medicine
DX: J69.0 Pneumonitis due to inhalation of food and vomit (principal); E43 Unspecified severe protein-calorie malnutrition; I13.0 Hypertensive heart and chronic kidney disease with heart failure and stage 1 through stage 4 chronic kidney disease, or unspecified chronic kidney disease; I27.82 Chronic pulmonary embolism; J98.11 Atelectasis; Z86.718 Personal history of other venous thrombosis and embolism; Z79.01 Long term (current) use of anticoagulants; I48.0 Paroxysmal atrial fibrillation; G40.909 Epilepsy, unspecified, not intractable, without status epilepticus; Z82.49 Family history of ischemic heart disease and other diseases of the circulatory system; K21.9 Gastro-esophageal reflux disease without esophagitis; N18.9 Chronic kidney disease, unspecified; F17.210 Nicotine dependence, cigarettes, uncomplicated; J44.9 Chronic obstructive pulmonary disease, unspecified; I35.0 Nonrheumatic aortic (valve) stenosis; F03.90 Unspecified dementia, unspecified severity, without behavioral disturbance, psychotic disturbance, mood disturbance, and anxiety; I50.9 Heart failure, unspecified; N40.0 Benign prostatic hyperplasia without lower urinary tract symptoms
CPT/HCPCS: 36415; 36600; 71045; 71275; 80053; 80162; 80185; 82803; 83605; 83690; 85025; 85610; 85730; 87040; 87804; 92526; 93306; 94640; 96361; 96365; 96366; 96375; J0610; J2020; J2543; J7620; Q0162; Q9967; 92610; 97112; 97116; 99285-25; J7030

== ENCOUNTER 2019-11-08 03:15 | Emergency (ER) | payer MEDICARE ==
[~2019-11-08] VITALS: Ht 177.8 cm; Wt 80.2 kg
[~2019-11-08 03:15] MED LIST: AMOX1TAB61 PO; CALC300T5 PO; CYAN100016 SL; DIGO125T17 PO; DIPH1TAB PO; FAMO-63 PO; FERR325T14 PO; FURO-69 PO; IPRA3AMP29 NEB; LOPE2TAB27 PO; MAG-115 PO; MAGN400O7 PO; METO2.5T PO; METO25TA4 PO; NICO1PAT25 TP; ONDA4TAB7 PO; ONDA8TAB9 PO; PHEN100C PO; POTA20TA4 PO; PRIM250T28 PO
[2019-11-08 03:17] VITALS: BP 124/58
--- NOTE | 2019-11-08 03:22 | PHYS DOC ---
Past History Past Medical History: A-Fib, Anemia, CHF, COPD, Dementia, DVT, GERD, Hip Fracture, Hypertension, Prostatitis, Seizure, Other Additional Past Medical Histor: anemia, dysphagia, BPH, pleural effusion, displaced/demetria fracture of L femur Past Surgical History: Other Additional Past Surgical Histo: Left hip nailing in August 2019 Smoking: Cigarettes, Less than 1pk/day Alcohol Use: None Drug Use: None Adult General Chief Complaint Chief Complaint: ".. The problem is..... I wake up ... and I don't know where in the hell ... I am at... and I stumble .. and fall.... I skinted.. this left forearm.. .. I told them not to send me here... but they said .. .they hav- ta send...me..." "..I had to go pee.. and I am just stubborn old man.. And I didn't want to wait for them, to come..." HPI HPI Patient is a 73 year old male who presents with above hx and complaints of fall. Patient is currently a resident [facility] after mechanical fall resulted in left hip fracture. Patient had recent medullary nailing at [facility] and was transferred to [facility] on 09/18/2019. Patient denies any syncope or dizziness or dysrhythmia. Patient states he gets tangled up and fell trying to get to the bathroom. Patient does have an extensive medical history. Patient has previous history of DVT , atrial fibrillation, bacteremia, pneumonia, mild dementia, deconditioning and a seizure disorder .Patient recently admitted at [facility] on 11/03/2019 for healthcare associated pneumonia, bilateral pulmonary emboli,. Patient was discharged to longterm on Augmentin and continuation of Coumadin. Review of Systems Review of Systems Constitutional: Denies fever or chills [] Eyes: Denies change in visual acuity, redness, or eye pain [] HENT: Denies nasal congestion or sore throat [] Respiratory: Denies cough or shortness of breath [] Cardiovascular: No additional information not addressed in HPI [] GI: Denies abdominal pain, nausea, vomiting, bloody stools or diarrhea [] : Denies dysuria or hematuria [] Musculoskeletal: Denies back pain or joint pain []. The patient complaints some new tenderness in left hip ( Same one that had pinning) Integument: Denies rash or skin lesions []. Patient complaints of abrasion left forearm Neurologic: Denies headache, focal weakness or sensory changes [] Endocrine: Denies polyuria or polydipsia [] All other systems were reviewed and found to be within normal limits, except as documented in this note. Family History Family History Noncontributory to presentation Current Medications Current Medications See nursing for longterm meds Allergies Allergies Allergies Coded Allergies Type Severity Reaction Last Updated Verified No Known Drug Allergies 09/22/19 No Physical Exam Physical Exam Constitutional: , no acute distress, non-toxic appearance. [] HENT: Normocephalic, small contusion to the left side of head, bilateral external ears normal, oropharynx moist, no oral exudates, nose normal. [] Eyes: PERRLA, EOMI, conjunctiva normal, no discharge. Glasses Neck: Normal range of motion, no tenderness, supple, no stridor. [] Cardiovascular:Heart rate regular rhythm, no murmur, PMI to the left Lungs & Thorax: Bilateral breath sounds scattered wheezes throughout on auscultation [] Abdomen: Bowel sounds normal, soft, no tenderness, mild distention, no pulsatile masses. [] Recent new left hip pin and scar Skin: Warm, dry, no erythema, no rash. Poor turgor. Has various small bruises and abrasions different stages of healing Back: No tenderness, no CVA tenderness. [] Extremities: Left forearm abrasion and contusion tenderness, no cyanosis, no clubbing, ROM intact, no edema. Arthritic changes. Left hip scar Neurologic: Alert and oriented X 3, moves all extremities on request, does have distal sensory, no focal deficits noted. [] Psychologic: Affect normal, judgement normal, mood normal. Does at times appear ed to have memory issues. EKG EKG [] Radiology/Procedures Radiology/Procedures [address] [address] IMAGING REPORT Signed PATIENT: CHRISTOPH GARCIA ACCOUNT: [id number] : 1945 LOCATION: ER AGE: 73 SEX: M EXAM STATUS: REG ER ORD. PHYSICIAN: PIRTI BOX MD REASON: Fall, bilateral hip and pelvic pain. Hx: Left hip surgery PROCEDURE: HIP BILATERAL WITH PELVIS Bilateral hips 2 views each with one view pelvis. HISTORY: Fall, bilateral hip and pelvic pain Single view was taken of the pelvis. There is no pelvic fracture. A pubic ramus fracture is not identified. There is a long intramedullary Right hip 2 views the right hip show no evidence of an acute fracture or acute osseous abnormality. There is extensive vascular calcification. Left hip 2 views the left hip show a healing intertrochanteric fracture. There is a long intramedullary manuel and hip nail in the left femur. There is also a plate along the femur with an old healed distal femur fracture. There is mild joint space narrowing in the medial joint compartment of the knee. There is extensive vascular calcification. An acute hip or femur fracture is not identified. IMPRESSION: 1. No acute pelvic fracture. 2. No right hip fracture. 3. Healing left intertrochanteric fracture. 4. Old distal femur fracture on the left. Electronically signed by: Avila Jimenez MD (11/08/2019 4:23 AM) [facility] DICTATED AND SIGNED BY: AVILA JIMENEZ MD DATE: 11/08/19 0423 CC: PRITI BOX MD; HIRA URIAS MD ~ [][address] [address] [address] IMAGING REPORT Signed PATIENT: CHRISTOPH GARCIA ACCOUNT: [id number] : 1945 LOCATION: ER AGE: 73 SEX: M EXAM STATUS: REG ER ORD. PHYSICIAN: PRITI BOX MD REASON: Fall, head and neck pain PROCEDURE: CT HEAD AND CERVICAL SPINE WO CT brain without contrast. CT cervical spine without contrast HISTORY: Fall, head and neck pain CT brain CT scan of brain was done without contrast. There is no intracranial hemorrhage or subdural hematoma. Patient had a previous craniotomy on the right. There is a large area of encephalomalacia in the right frontal lobe. Ventricles are dilated from atrophy. An acute CVA is not identified. There is an old lacunar infarct in the right basal ganglia. There is chronic microvascular change in the white matter bilaterally. An acute skull fracture is not identified. Sinuses are clear. IMPRESSION: 1. Previous right craniotomy. 2. Large area of encephalomalacia in the right frontal lobe. 3. No intracranial hemorrhage or definite acute finding. End impression CT cervical spine Axial CT images were obtained to the cervical spine. Sagittal and coronal reconstructed images were reviewed. Unfortunately there is motion artifact which limits evaluation. There is degenerative disc disease at multiple levels in the cervical spine. An acute fracture is not definitively identified. There is a 2 cm low-density lesion in the left thyroid. IMPRESSION: 1. Limited study due to motion artifact. 2. No definite fracture. If symptoms persist a follow-up study could be of benefit. 3. Degenerative disc disease in the cervical spine. RS Compliance Statement: One or more of the following individualized dose reduction techniques were utilized for this examination: 1. Automated exposure control 2. Adjustment of the mA and/or kV according to patient size 3. Use of iterative reconstruction technique Electronically signed by: Avila Jimenez MD (11/08/2019 4:43 AM) [facility] DICTATED AND SIGNED BY: AVILA JIMENEZ MD DATE: 11/08/19 0443 CC: PRITI BOX MD; HIRA URIAS MD ~ IMAGING REPORT Signed PATIENT: CHRISTOPH GARCIA ACCOUNT: [id number] : 1945 LOCATION: ER AGE: 73 SEX: M EXAM STATUS: REG ER ORD. PHYSICIAN: PRITI BOX MD REASON: Fall, left forearm abrasions PROCEDURE: FOREARM LEFT Left forearm 2 views. HISTORY: Fall, forearm abrasions 2 views were taken of the left forearm. 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 There are erosions on the carpal bones. There is joint space narrowing at the first carpal metacarpal joint. An acute fracture is not identified. The ulnar Styloid is irregular with a probable old fracture. IMPRESSION: 1. 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 2. Probable old fracture at the ulnar styloid. 3. No acute forearm fracture noted. Electronically signed by: Avila Jimenez MD (11/08/2019 4:19 AM) [facility] DICTATED AND SIGNED BY: AVILA JIMENEZ MD DATE: 11/08/19 0419 CC: PRITI BOX MD; HIRA URIAS MD ~ Course & Med Decision Making Course & Med Decision Making Pertinent Labs and Imaging studies reviewed. (See chart for details) Encourage pt. to use his call light or use urinal when he needs to go the bathroom. Impression: 1. History falling 2. Contusions and abrasions 3. No obvious new fractures [] Dragon Disclaimer Dragon Disclaimer This electronic medical record was generated, in whole or in part, using a voice recognition dictation system. Departure Departure: Disposition: 01 HOME/RESIDENCE PRIOR TO ADM Condition: STABLE Referrals: HIRA URIAS MD (PCP) Dragon Disclaimer This chart was dictated in whole or in part using Voice Recognition software in a busy, high-work load, and often noisy Emergency Department environment. It may contain unintended and wholly unrecognized errors or omissions. PRITI BOX MD Nov 08, 2019 03:22
--- NOTE | 2019-11-08 04:23 | RAD ---
Left forearm 2 views. HISTORY: Fall, forearm abrasions 2 views were taken of the left forearm. 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 There are erosions on the carpal bones. There is joint space narrowing at the first carpal metacarpal joint. An acute fracture is not identified. The ulnar Styloid is irregular with a probable old fracture. IMPRESSION: 1. 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 2. Probable old fracture at the ulnar styloid. 3. No acute forearm fracture noted. Electronically signed by: Avila Jimenez MD (11/08/2019 4:19 AM) [facility]
--- NOTE | 2019-11-08 04:26 | RAD ---
Bilateral hips 2 views each with one view pelvis. HISTORY: Fall, bilateral hip and pelvic pain Single view was taken of the pelvis. There is no pelvic fracture. A pubic ramus fracture is not identified. There is a long intramedullary Right hip 2 views the right hip show no evidence of an acute fracture or acute osseous abnormality. There is extensive vascular calcification. Left hip 2 views the left hip show a healing intertrochanteric fracture. There is a long intramedullary manuel and hip nail in the left femur. There is also a plate along the femur with an old healed distal femur fracture. There is mild joint space narrowing in the medial joint compartment of the knee. There is extensive vascular calcification. An acute hip or femur fracture is not identified. IMPRESSION: 1. No acute pelvic fracture. 2. No right hip fracture. 3. Healing left intertrochanteric fracture. 4. Old distal femur fracture on the left. Electronically signed by: Avila Jimenez MD (11/08/2019 4:23 AM) [facility]
--- NOTE | 2019-11-08 04:46 | RAD ---
CT brain without contrast. CT cervical spine without contrast HISTORY: Fall, head and neck pain CT brain CT scan of brain was done without contrast. There is no intracranial hemorrhage or subdural hematoma. Patient had a previous craniotomy on the right. There is a large area of encephalomalacia in the right frontal lobe. Ventricles are dilated from atrophy. An acute CVA is not identified. There is an old lacunar infarct in the right basal ganglia. There is chronic microvascular change in the white matter bilaterally. An acute skull fracture is not identified. Sinuses are clear. IMPRESSION: 1. Previous right craniotomy. 2. Large area of encephalomalacia in the right frontal lobe. 3. No intracranial hemorrhage or definite acute finding. End impression CT cervical spine Axial CT images were obtained to the cervical spine. Sagittal and coronal reconstructed images were reviewed. Unfortunately there is motion artifact which limits evaluation. There is degenerative disc disease at multiple levels in the cervical spine. An acute fracture is not definitively identified. There is a 2 cm low-density lesion in the left thyroid. IMPRESSION: 1. Limited study due to motion artifact. 2. No definite fracture. If symptoms persist a follow-up study could be of benefit. 3. Degenerative disc disease in the cervical spine. PQRS Compliance Statement: One or more of the following individualized dose reduction techniques were utilized for this examination: 1. Automated exposure control 2. Adjustment of the mA and/or kV according to patient size 3. Use of iterative reconstruction technique Electronically signed by: Avila Jimenez MD (11/08/2019 4:43 AM) [facility]
== END 2019-11-08 07:16 | disposition short-term general hospital (02) ==
LOC: ER 03:15
DX: S00.83XA Contusion of other part of head, initial encounter (principal); M25.552 Pain in left hip; I48.20 Chronic atrial fibrillation, unspecified; J44.9 Chronic obstructive pulmonary disease, unspecified; I11.0 Hypertensive heart disease with heart failure; I48.91 Unspecified atrial fibrillation; K21.9 Gastro-esophageal reflux disease without esophagitis; F17.210 Nicotine dependence, cigarettes, uncomplicated; Z98.890 Other specified postprocedural states; Z86.718 Personal history of other venous thrombosis and embolism; W19.XXXA Unspecified fall, initial encounter; Y93.89 Activity, other specified; Y92.89 Other specified places as the place of occurrence of the external cause; Y99.8 Other external cause status
CPT/HCPCS: 70450; 72125; 73090; 73521; 99284

== ENCOUNTER 2019-12-05 22:27 | Emergency (ER) | payer MEDICARE ==
[~2019-12-05] VITALS: Ht 177.8 cm; Wt 72.0 kg
--- NOTE | 2019-12-05 23:12 | PHYS DOC ---
Past History Past Medical History: A-Fib, Anemia, Bronchitis, COPD, DVT, Pneumonia, Seizure, Other Additional Past Medical Histor: hx fracture left femur, moderate protein malnutrition, BPH Past Surgical History: Other Additional Past Surgical Histo: fractured left femur Smoking: Cigarettes, Less than 1pk/day Alcohol Use: None Drug Use: None Adult General Chief Complaint Chief Complaint: MECHANICAL FALL..." I fell.. getting out wheel chair.. knocked my skin off.. ".." I am fine... but they said I had to come and get checked out... " [facility] HPI Patient is a 74 year old male who presents with above hx and complaints of fall and when he attempts to get out of the wheelchair... Patient has multiple areas of abrasion from different stages of healing and skin tears.. Has a new skin tear on top of old skin tear on his back. Patient has history of frequent falls. I had even examined patient after fall on 11/08. Patient has a long list of medical issues A. fib, anemia, CHF, COPD, dementia, DVT, seizures, GERD, left hip and pending, hypertension, enlarged prostate, and failure to follow medical regimens. Patient consistently refuses to call for skilled nursing facility counselor on transfer. Patient currently angry that he is been sent to the emergency department. Review of Systems Review of Systems Constitutional: Denies fever or chills [] Eyes: Denies change in visual acuity, redness, or eye pain [] HENT: Denies nasal congestion or sore throat [] Respiratory: Denies cough or shortness of breath [] Cardiovascular: No additional information not addressed in [facility] [] GI: Denies abdominal pain, nausea, vomiting, bloody stools or diarrhea [] : Denies dysuria or hematuria [] Musculoskeletal: Denies back pain or joint pain [] Integument: Denies rash or skin lesions. The patient complains of skin tear on his old skin tear Neurologic: Denies headache, focal weakness or sensory changes [] Endocrine: Denies polyuria or polydipsia [] All other systems were reviewed and found to be within normal limits, except as documented in this note. Family History Family History Noncontributory Current Medications Current Medications See nursing for assisted meds Allergies Allergies Allergies Coded Allergies Type Severity Reaction Last Updated Verified No Known Drug Allergies 11/08/19 No Physical Exam Physical Exam Constitutional: no acute distress, non-toxic appearance. [] HENT: Normocephalic, atraumatic, bilateral external ears normal, oropharynx moist, no oral exudates, nose normal. []Old surgery scar Eyes: PERRLA, EOMI, conjunctiva normal, no discharge. [] Neck: Normal range of motion, no tenderness, supple, no stridor. [] Cardiovascular: Irregular rate and rhythm , no murmur []PMI to the left Lungs & Thorax: Bilateral breath sounds equal apex with scattered wheezes on auscultation [] Abdomen: Bowel sounds normal, soft, no tenderness, no masses, no pulsatile masses. Old surgery scars. Old surgical scar hips Skin: Warm, dry, no erythema, no rash. [] Multiple areas of contusion and skin tears. Stages of healing. New skin tear on top of old skin tear on his back Back: No tenderness, no CVA tenderness. [] Extremities: No tenderness, no cyanosis, no clubbing, ROM intact, no edema. Arthritic changes. Neurologic: Alert and oriented X 3, moves all extremities on request. Does have distal sensory, no new focal deficits noted. [] Psychologic: Affect angry, judgement appears to have some dementia, patient currently refusing IV sticks or labs, or EKG, patient eventually agreed to get CT and x-ray EKG EKG [] Radiology/Procedures Radiology/[place] [address] IMAGING REPORT Signed PATIENT: CHRISTOPH GARCIA ACCOUNT: [id number] : 1945 LOCATION: ER AGE: 74 SEX: M EXAM STATUS: PRE ER ORD. PHYSICIAN: PRITI BOX MD REASON: Recent falls, hit head, weakness, cough, congesion PROCEDURE: CT HEAD WO CONTRAST CT HEAD WO CONTRAST History: Recent falls, hit head, weakness Comparison: November 09, 2019 Technique: Noncontrast CT imaging was performed of the head. Exposure: One or more of the following individualized dose reduction techniques were utilized for this examination: 1. Automated exposure control 2. Adjustment of the mA and/or kV according to patient size 3. Use of iterative reconstruction technique. Findings: There is again large area of encephalomalacia of the right frontal lobe with cortical involvement. There again has been right frontal parietal craniotomy. There is no evidence of acute intracranial hemorrhage. There is no new midline shift. There is again ex vacuo dilatation of the right lateral ventricle, ventricular size stable. There are again old lacunar infarcts of the bilateral basal ganglia. There is again scattered at least mild ill-defined low-density of the supratentorial parenchyma bilaterally. There is some atherosclerotic calcification of the intradural vertebral arteries and carotid siphons bilaterally. There is patchy yndm-my-agnorefs ethmoid air cell mucosal thickening greater on the left. There is a small right connie bullosa. There is inferior left maxillary sinus mucous retention cyst about 2 cm. Impression: 1. There is no evidence of acute intracranial hemorrhage. There is again large area of encephalomalacia with cortical involvement of the right frontal lobe underlying craniotomy site. There are again old lacunar infarcts of the bilateral basal ganglia, other ill-defined low-density of the supratentorial parenchyma probably component of chronic microvascular ischemic disease in a patient this age. Electronically signed by: Jacinta Cohn MD (12/05/2019 11:32 PM) [id number] DICTATED AND SIGNED BY: JACINTA COHN MD DATE: 12/05/192331 CC: PRITI BOX MD; HIRA URIAS MD ~ [][place] [address] IMAGING REPORT Signed PATIENT: CHRISTOPH GARCIA ACCOUNT: [id number] : 1945 LOCATION: ER AGE: 74 SEX: M EXAM STATUS: PRE ER ORD. PHYSICIAN: PRITI BOX MD REASON: Recent falls, hit head, weakness, cough, congesion PROCEDURE: CHEST AP ONLY CHEST AP ONLY History: Recent falls, headache, weakness and cough, congestion Comparison: November 03, 2019 Findings: Single view of the chest is submitted. There is atherosclerotic calcification near aortic arch. Cardiac silhouette is unchanged. There is again interstitial opacity bilaterally, somewhat increased reticular and linear appearing opacity at the left lung base. There is likely degree of emphysema. Impression: 1. There is some increased left base opacity which may be atelectasis. There is suspected emphysema. There is again interstitial opacity bilaterally which could be a component of more chronic interstitial fibrotic change. Electronically signed by: Jacinta Cohn MD (12/05/2019 11:37 PM) [id number] DICTATED AND SIGNED BY: JACINTA COHN MD DATE: 12/05/19 2337 CC: PRITI BOX MD; BRIDGETT, Course & Med Decision Making Course & Med Decision Making Pertinent Labs and Imaging studies reviewed. (See chart for details) Wounds cleaned. Antibiotic Polysporin Applied. Patient encouraged to call for help in getting out of wheelchair or bed. Patient return if any concerns. Impression: 1. Frequent falls 2. Skin tears and contusions and abrasions [] Dragon Disclaimer Dragon Disclaimer This electronic medical record was generated, in whole or in part, using a voice recognition dictation system. Departure Departure: Disposition: 01 HOME/RESIDENCE PRIOR TO ADM Condition: STABLE Referrals: HIRA URIAS MD (PCP) Dragon Disclaimer This chart was dictated in whole or in part using Voice Recognition software in a busy, high-work load, and often noisy Emergency Department environment. It may contain unintended and wholly unrecognized errors or omissions. Dragon Disclaimer This chart was dictated in whole or in part using Voice Recognition software in a busy, high-work load, and often noisy Emergency Department environment. It may contain unintended and wholly unrecognized errors or omissions. PRITI BOX MD Dec 05, 2019 23:12
[2019-12-05] MEDS ORDERED: BACITRACIN ZINC TOPICAL OINT PACKET. TP ONE (23:30)
--- NOTE | 2019-12-05 23:35 | RAD ---
CT HEAD WO CONTRAST History: Recent falls, hit head, weakness Comparison: November 09, 2019 Technique: Noncontrast CT imaging was performed of the head. Exposure: One or more of the following individualized dose reduction techniques were utilized for this examination: 1. Automated exposure control 2. Adjustment of the mA and/or kV according to patient size 3. Use of iterative reconstruction technique. Findings: There is again large area of encephalomalacia of the right frontal lobe with cortical involvement. There again has been right frontal parietal craniotomy. There is no evidence of acute intracranial hemorrhage. There is no new midline shift. There is again ex vacuo dilatation of the right lateral ventricle, ventricular size stable. There are again old lacunar infarcts of the bilateral basal ganglia. There is again scattered at least mild ill-defined low-density of the supratentorial parenchyma bilaterally. There is some atherosclerotic calcification of the intradural vertebral arteries and carotid siphons bilaterally. There is patchy wmcp-ic-jgpmfxam ethmoid air cell mucosal thickening greater on the left. There is a small right connie bullosa. There is inferior left maxillary sinus mucous retention cyst about 2 cm. Impression: 1. There is no evidence of acute intracranial hemorrhage. There is again large area of encephalomalacia with cortical involvement of the right frontal lobe underlying craniotomy site. There are again old lacunar infarcts of the bilateral basal ganglia, other ill-defined low-density of the supratentorial parenchyma probably component of chronic microvascular ischemic disease in a patient this age. Electronically signed by: Sylvester Cohn MD (12/05/2019 11:32 PM) [id number]
--- NOTE | 2019-12-05 23:40 | RAD ---
CHEST AP ONLY History: Recent falls, headache, weakness and cough, congestion Comparison: November 03, 2019 Findings: Single view of the chest is submitted. There is atherosclerotic calcification near aortic arch. Cardiac silhouette is unchanged. There is again interstitial opacity bilaterally, somewhat increased reticular and linear appearing opacity at the left lung base. There is likely degree of emphysema. Impression: 1. There is some increased left base opacity which may be atelectasis. There is suspected emphysema. There is again interstitial opacity bilaterally which could be a component of more chronic interstitial fibrotic change. Electronically signed by: Sylvester Cohn MD (12/05/2019 11:37 PM) [id number]
[2019-12-06] MEDS ORDERED: DIPHTH,PERTUSS(ACELL),TET TOX 0.5 ML DISP.SYRIN. VAX IM ONE (01:00)
[2019-12-06 03:16] VITALS: BP 110/52
== END 2019-12-06 03:53 | disposition home or self-care (01) ==
LOC: ER 22:27
DX: S31.010A Laceration without foreign body of lower back and pelvis without penetration into retroperitoneum, initial encounter (principal); T14.8XXA Other injury of unspecified body region, initial encounter; I48.91 Unspecified atrial fibrillation; J44.9 Chronic obstructive pulmonary disease, unspecified; I11.0 Hypertensive heart disease with heart failure; I50.9 Heart failure, unspecified; K21.9 Gastro-esophageal reflux disease without esophagitis; F17.210 Nicotine dependence, cigarettes, uncomplicated; Z86.73 Personal history of transient ischemic attack (TIA), and cerebral infarction without residual deficits; W05.0XXA Fall from non-moving wheelchair, initial encounter; Y93.89 Activity, other specified; Y92.89 Other specified places as the place of occurrence of the external cause; Y99.8 Other external cause status
CPT/HCPCS: 70450; 71045; 90471; 90715; 99284

== ENCOUNTER 2019-12-13 01:44 | Emergency (ER) | payer MEDICARE ==
[~2019-12-13] VITALS: Ht 177.8 cm; Wt 72.0 kg
[2019-12-13 01:44] VITALS: BP 113/49
[2019-12-13] MEDS ORDERED: NEOMY/BACITR/POLYMYXIN OINT PACKET. TP ONE (01:52)
--- NOTE | 2019-12-13 01:57 | PHYS DOC ---
Past History Past Medical History: A-Fib, Anemia, Bronchitis, COPD, DVT, Pneumonia, Seizure, Other Additional Past Medical Histor: hx fracture left femur, moderate protein malnutrition, BPH Past Surgical History: Other Additional Past Surgical Histo: fractured left femur Smoking: Cigarettes, Less than 1pk/day Alcohol Use: None Drug Use: None Adult General Chief Complaint Chief Complaint: skin tear HPI HPI 74-year-old male presents via EMS for fall and skin tear. The patient is coming from a care facility. He was leaning forward in his wheelchair to get a candy bar and he was leaning too far and fell out of the chair. He denies hitting his head. He did scratch the skin of his right forarm. The skin tears were bleeding. The patient was not knocked unconscious. He remembers the entire event. He has been acting normal since. His had no vomiting. He is on Coumadin. Patient denies headache or any other complaints other than the skin tear. Review of Systems Review of Systems Constitutional: Denies fever or chills [] Eyes: Denies change in visual acuity, redness, or eye pain [] HENT: Denies nasal congestion or sore throat [] Respiratory: Denies cough or shortness of breath [] Cardiovascular: No additional information not addressed in HPI [] GI: Denies abdominal pain, nausea, vomiting, bloody stools or diarrhea [] : Denies dysuria or hematuria [] Musculoskeletal: Denies back pain or joint pain [] Integument: Skin tear right arm[] Neurologic: Denies headache, focal weakness or sensory changes [] Endocrine: Denies polyuria or polydipsia [] All other systems were reviewed and found to be within normal limits, except as documented in this note. Current Medications Current Medications Current Medications Medications (Trade) Dose Ordered Sig/Yeimi Start Time Stop Time Status Last Admin Dose Admin Neomycin/ Polymyxin/ Bacitracin (Triple Antibiotic Ointment) 1 pkt STK-MED ONCE 12/13/19 01:52 12/13/19 01:52 DC Allergies Allergies Allergies Coded Allergies Type Severity Reaction Last Updated Verified No Known Drug Allergies 11/08/19 No Physical Exam Physical Exam Constitutional: Well developed, well nourished, no acute distress, non-toxic appearance. [] HENT: Normocephalic, atraumatic, bilateral external ears normal, oropharynx moist, no oral exudates, nose normal. [] Eyes: PERRLA, EOMI, conjunctiva normal, no discharge. [] Neck: Normal range of motion, no tenderness, supple, no stridor. [] Cardiovascular:Heart rate regular rhythm, no murmur [] Lungs & Thorax: Bilateral breath sounds clear to auscultation [] Abdomen: Bowel sounds normal, soft, no tenderness, no masses, no pulsatile masses. [] Skin: Scattered skin tear told glove 8 cm in length on the right forearm. Nothing suturable.[] Back: No tenderness, no CVA tenderness. [] Extremities: No tenderness, no cyanosis, no clubbing, ROM intact, no edema. [] Neurologic: Alert and oriented X 3, normal motor function, normal sensory function, no focal deficits noted. [] Psychologic: Affect normal, judgement normal, mood normal. [] EKG EKG [] Radiology/Procedures Radiology/Procedures [] Course & Med Decision Making Course & Med Decision Making Pertinent Labs and Imaging studies reviewed. (See chart for details) The patient has a superficial skin tears. We dressed them with nonadherent dressings and bacitracin. I do not see the necessity for further workup as the patient does not appear to have hit his head. He is stable for discharge at this time. [] Dragon Disclaimer Dragon Disclaimer This electronic medical record was generated, in whole or in part, using a voice recognition dictation system. Departure Departure: Impression: Primary Impression: Fall from wheelchair Additional Impression: Skin tear of right upper extremity Disposition: 01 HOME, SELF-CARE Condition: IMPROVED Referrals: HIRA URIAS MD (PCP) Patient Instructions: Skin Tear Care, Ofjj-en-Verd Problem Qualifiers Primary Impression: Fall from wheelchair Encounter type: initial encounter Qualified Codes: W05.0XXA - Fall from non-moving wheelchair, initial encounter LASHAY COHEN DO Dec 13, 2019 01:57
== END 2019-12-13 02:00 | disposition home or self-care (01) ==
LOC: ER 01:44
DX: S41.111A Laceration without foreign body of right upper arm, initial encounter (principal); I48.91 Unspecified atrial fibrillation; J44.9 Chronic obstructive pulmonary disease, unspecified; F17.210 Nicotine dependence, cigarettes, uncomplicated; Z86.718 Personal history of other venous thrombosis and embolism; Z86.2 Personal history of diseases of the blood and blood-forming organs and certain disorders involving the immune mechanism; W05.0XXA Fall from non-moving wheelchair, initial encounter; Y93.89 Activity, other specified; Y92.89 Other specified places as the place of occurrence of the external cause; Y99.8 Other external cause status
CPT/HCPCS: 99281; 99283

== ENCOUNTER 2019-12-27 06:27 | Emergency (ER) | payer MEDICARE ==
[~2019-12-27] VITALS: Ht 177.8 cm; Wt 72.0 kg
[2019-12-27] MEDS ORDERED: IV NORMAL SALINE 1,000ML 1,000 ML IV ONE (06:45)
[2019-12-27] MEDS ORDERED: NEOMY/BACITR/POLYMYXIN OINT PACKET. TP ONE (06:45)
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
--- NOTE | 2019-12-27 07:12 | RAD ---
CT HEAD AND CERVICAL SPINE WO Date: 12/27/2019 6:33 AM Clinical Indication: Fall, pain Comparison: 12/05/2019. Technique: 5 mm axial tomographic images were obtained of the head without contrast. These were viewed on brain and bone windows. Noncontrast CT of the cervical spine was performed. Sagittal and coronal reformats were performed and evaluated. One or more of the following dose reduction techniques were utilized: Automated exposure control (AEC), Adjustment of mA and/or kV according to patient size, Use of iterative reconstruction technique such as ASiR, CT scan done according to ALARA and image gently/image wisely HEAD FINDINGS: Postsurgical changes of right frontal craniotomy. Large area of right frontal encephalomalacia. Mild generalized cerebral and cerebellar volume loss. Mild nonspecific periventricular hypoattenuation, most commonly seen with chronic small vessel ischemic disease. Chronic bilateral basal ganglia lacunar infarcts. No intra- or extra-axial mass or fluid collection. No acute hemorrhage. Exvacuodilatation of the right lateral ventricle. The dudley-white matter junction is normal. The basilar cisterns are patent. Left ethmoid sinus mucosal thickening. The visualized portions of the orbits and globes are normal. The mastoid air cells are clear. No aggressive osseous lesion or fracture. CERVICAL SPINE FINDINGS: The cervical spine is normally aligned. No acute fracture. No aggressive lytic or blastic osseous lesions. Severe multilevel degenerative disc space height loss. Multilevel mild and moderate spinal canal stenosis secondary to disc protrusions and marginal osteophytes. Multilevel mild and moderate neuroforaminal narrowing secondary to uncovertebral arthrosis. Multilevel moderate to severe facet arthrosis. Left thyroid nodule measuring 2.4 cm. No cervical lymphadenopathy. Bilateral carotid atherosclerosis. The visualized aerodigestive tract is normal. The visualized portions of the lungs are clear. IMPRESSION: 1. No acute intracranial process. 2. No acute cervical spine fracture. 3. Left thyroid nodule measuring 2.4 cm, which could be further characterized with dedicated thyroid ultrasound if not performed previously. Electronically signed by: Sylvester Lopez MD (12/27/2019 7:09 AM) [id number]
[2019-12-27 07:24] LABS: BASO # 0.1 x10^3/uL (0.0-0.2); BASO % 1 % (0-3); EOS # 0.4 x10^3/uL (0.0-0.7); EOS % 8 % (0-3); HEMATOCRIT 42.8 % (39.0-53.0); HEMOGLOBIN 13.9 g/dL (13.0-17.5); LYMPH # 1.4 x10^3/uL (1.0-4.8); LYMPH % 26 % (24-48); MEAN CORPUSCULAR HEMOGLOBIN 32 pg (25-35); MEAN CORPUSCULAR HGB CONC 33 g/dL (31-37); MEAN CORPUSCULAR VOLUME 99 fL (79-100); MONO # 0.5 x10^3/uL (0.0-1.1); MONO % 10 % (0-9); NEUT # 2.9 x10^3uL (1.8-7.7); NEUT % 55 % (31-73); PLATELET COUNT 197 x10^3/uL (140-400); RED BLOOD COUNT 4.32 x10^6/uL (4.30-5.70); RED CELL DISTRIBUTION WIDTH 16.8 % (11.5-14.5); WHITE BLOOD COUNT 5.4 x10^3/uL (4.0-11.0)
[2019-12-27 08:16] LABS: CALCIUM 8.9 mg/dL (8.5-10.1); GFR 72.6; POTASSIUM 4.2 mmol/L (3.5-5.1)
[2019-12-27 08:17] LABS: BACTERIA,URINE 0 /HPF (0-FEW); BILIRUBIN,URINE NEG (NEG); CLARITY,URINE CLEAR; COLOR,URINE YELLOW; GLUCOSE,URINE NEG (NEG); NITRITE,URINE NEG (NEG); SQUAMOUS EPITHELIAL CELL,UR FEW /LPF; UROBILINOGEN,URINE 0.2 mg/dL (0.2 mg/dL)
[2019-12-27 08:22] LABS: ALBUMIN 3.2 g/dL (3.4-5.0); ALBUMIN/GLOBULIN RATIO 0.8 (1.0-1.7); TOTAL BILIRUBIN 0.1 mg/dL (0.2-1.0); TOTAL PROTEIN 7.4 g/dL (6.4-8.2)
[2019-12-27 08:45] VITALS: BP 133/62
== END 2019-12-27 08:47 | disposition home or self-care (01) ==
LOC: ER 06:27
DX: S01.01XA Laceration without foreign body of scalp, initial encounter (principal); E07.9 Disorder of thyroid, unspecified; R19.7 Diarrhea, unspecified; M25.551 Pain in right hip; I48.91 Unspecified atrial fibrillation; J44.9 Chronic obstructive pulmonary disease, unspecified; F17.210 Nicotine dependence, cigarettes, uncomplicated; Z86.718 Personal history of other venous thrombosis and embolism; Z86.2 Personal history of diseases of the blood and blood-forming organs and certain disorders involving the immune mechanism; W18.09XA Striking against other object with subsequent fall, initial encounter; Y93.89 Activity, other specified; Y92.121 Bathroom in nursing home as the place of occurrence of the external cause; Y99.8 Other external cause status
CPT/HCPCS: 36415; 70450; 72125; 80053; 81001; 83735; 85025; 85610; 85730; 96360; 99285-25; J7030